=== PATIENT | male | born 1975 | race Caucasian/White ===

== ENCOUNTER 2022-12-25 06:47 | Outpatient (OUT) | payer OTHER, SELFPAY ==
[2022-12-25 07:05] LABS: Basophils Absolute Auto 0.1 10^3/uL (0.0-0.1); Basophils Percent Auto 0.8 % (0.2-2.0); Eosinophils Absolute Auto 0.3 10^3/uL (0.0-0.7); Eosinophils Percent Auto 3.4 % (0.9-7.0); Hematocrit 39.4 % (42.0-54.0); Hemoglobin 13.4 g/dL (14.0-18.0); Immature Granulocytes Abs Auto 0.02 10^3/uL (0.00-0.03); Immature Granulocytes Pct Auto 0.3 % (0.0-0.5); Lymphocytes Absolute Auto 2.5 10^3/uL (1.2-3.8); Lymphocytes Percent Auto 33.4 % (20.5-60.0); Mean Corpuscular Hemoglobin 32.7 pg (25.9-34.0); Mean Corpuscular Volume 96.1 fL (80.0-94.0); Mean Platelet Volume 8.8 fL (9.5-13.5); Monocytes Absolute Auto 0.5 10^3/uL (0.3-0.8); Monocytes Percent Auto 6.8 % (1.7-12.0); Neutrophils Absolute Auto 4.1 10^3/uL (1.4-6.5); Neutrophils Percent Auto 55.3 % (43.0-75.0); Platelet Count 260 10^3/uL (150-450); Red Cell Distribution Width 11.8 % (11.0-15.0); White Blood Count 7.4 10^3/uL (4.0-11.0)
[2022-12-25 08:13] LABS: Alanine Aminotransferase 43 U/L (16-63); Albumin Globulin Ratio 1.2; Albumin Level 4.1 g/dL (3.4-5.0); Alkaline Phosphatase 52 U/L (46-116); Aspartate Amino Transferase 23 U/L (15-37); Bilirubin Total 0.8 mg/dL (0.2-1.0); Carbon Dioxide 29.4 mmol/L (21.0-32.0); Chloride 101 mmol/L (98-107); Chol HDL Ratio 3.3; Cholesterol 169 mg/dL (<=200); Estimated GFR (African America >60 (>=60); Estimated GFR (Non-African Ame >60 (>=60); Globulin 3.4 g/dL; Glucose 93 mg/dL (74-106); HDL Cholesterol 51 mg/dL (40-60); LDL Cholesterol Calculated 92.6 mg/dL; Potassium 4.4 mmol/L (3.5-5.1); Sodium 139 mmol/L (136-145); Total Protein 7.5 g/dL (6.4-8.2); Triglycerides 127 mg/dL (<=150); VLDL CHOLESTEROL 25.4 mg/dL
== END 2022-12-25 06:48 | disposition home or self-care (01) ==
LOC: LAB 06:47
PROVIDERS: PCP Family Medicine; Visit Provider Family Medicine
DX: Z00.00 Encounter for general adult medical examination without abnormal findings (principal)
CPT/HCPCS: 36415; 80053; 80061; 85025

== ENCOUNTER 2024-08-31 15:05 | Outpatient (OUT) | payer OTHER, SELFPAY ==
--- OUTSIDE RECORDS SUMMARY | 2024-08-28 11:30 | XMS_ITS ---
Author Organization The [facility] in [place] Address [address] [place] [address] Care Team Providers Care Location And Measurement Technician Name Role Phone [place] Primary Care Provider [phone] Allergies Allergen (clinical drug ingredient) Drug/Non Drug Allergy documented on EMR Reaction Allergy Type Onset Date Status Cats Unknown Allergy Active Substance with sulfonamide structure and antibacterial mechanism of action (substance) Sulfa Antibiotics rash Drug Allergy Active REASON FOR VISIT new patient, previous pcp dr alejandre Medications Medication SIG (Take, Route, Frequency, Duration) Notes Start Date End Date Status buPROPion HCl ER (XL) 150 MG 1 tablet in the morning Orally Once a day Active Garlic Active Multivitamin Active Viagra 100 MG 1 tablet as needed O rally Once a day for 90 days 08/28/2024 Active Lisinopril 20 MG 1 tablet Orally Once a day Active Social History Tobacco Use: Social History Observation Description Date Details (start date - stop date) Former Smoker 11/07/1992 - 03/10/2004 Tobacco Control (Standard) Question Answer Notes Tobacco use: Former smoker When did you start smoking? 11/07/1992 When did you stop smoking? 03/10/2004 How long has it been since y ou last smoked? Greater than 10 years Additional Findings: Tobacco user Heavy cigarett e smoker (20-39 cigs/day) AUDIT-C (Standard) Question Answer Notes Did you have a drink contain ing alcohol in the past year? Yes How often did you have a dri nk containing alcohol in the past year? Monthly or less (1 point) How many drinks did you have on a typical day when you were drinking in the past year? 1 or 2 drinks (0 point) How often did you have six o r more drinks on one occasion in the past year? 2 to 3 times per week (3 points) Points 4 Interpretation Positive Problems Problem Type SNOMED Code ICD Code Onset Dates Problem Status W/U Status Risk Notes Problem Sleep apnea (67611500) Sleep apnea (G47.30) Active confirmed Problem Depression (322177770) Depression (F32.9) Active confirmed Problem Anxiety (98830852) Anxiety (F41.9) Active confirmed Problem Hypertension (00004796) Hypertension (I10) Active confirmed Problem Impotence (N52.9) Active confirmed Vital Signs Blood pressure systolic 124 mm Hg 08/29/19 25 Blood pressure diastolic 80 mm Hg 025 Height 69 in 08/28/2024 Weight 247.2 lbs 08/28/2024 BMI 36.5 kg/m2 08/28/2024 Encounters Encounter Location Date Provider Diagnosis [facility] [address] [place] [address] 08/28/2024 [place] Sleep apnea G47.30 ; Depression F32.9 ; Anxiety F41.9 ; Hypertension I10 ; Impotence N52.9 and Well adult Z00.00 Assessments Encounter Date Diagnosis (ICD Code) Assessment Notes Treatment Notes Treatment Clinical Notes Section Notes 08/28/2024 Sleep apnea (ICD-10 - G47.30) weating mask an dhelps but not as much as previou - may need repat titration 08/28/2024 Depression (ICD-10 - F32.9) meds helping 08/28/2024 Anxiety (ICD-10 - F41.9) pn meds stable 08/28/2024 Hypertension (ICD-10 - I10) stqble on med - and diet 08/28/2024 Impotence (ICD-10 - N52.9) 08/28/2024 Well adult (ICD-10 - Z00.00) Plan Of Treatment Medication Medication Name Sig Start Date Stop Date Notes buPROPion HCl ER (XL) 150 MG 1 tablet in the morning Orally Once a day Viagra 100 MG 1 tablet as needed O rally Once a day for 90 days 08/28/2024 Lisinopril 20 MG 1 tablet Orally Once a day Treatment Notes Assessment Notes Sleep apnea weating mask an dhel ps but not as much as previou - may need repat titration Depression meds helping Anxiety pn meds stable Hypertension stqble on med - and diet Pending Test Test Name Order Date HEMOGLOBIN A1C (GLYCO) 08/28/2024 LIPID PANEL (CHOL/TRIG/HDL/LDL) 08/29/19 25 STOOL OCCULT BLOOD 08/28/2024 TESTOSTERONE, TOTAL 08/28/2024 THYROID PANEL (T4/TSH/FREE T3) 5 PSA, SCREENING 08/28/2024 CMP (COMP MET SHEN) w/eGFR CKD-EPI 2024 CBC WITH DIFF 08/28/2024 Progress Notes * Navya HARRISOB:1975 ([age] yo M)Acc No.[id number]:08/28/2024 New Patient Patient: Stuart RAMAN Provider: Miguel [place] ([facility])MD :1975 A ge:49 Y S ex:Male Date:08/28/2024 Address:[facility] [address], [place], [id number] Check In:03:20 PM ESTCheck O ut:04:16 PM EST Subjective: * Chief Complaints: * N ew patient, previous pcp dr alejandre * HPI: G eneral: anxiet and depression - Hypertesnion - stable on meds due for labs. D epression Screening: PHQ-9 L ittle interest or pleasure in doing things?Several days F eeling down, depressed, or hopeless S everal days T rouble falling or staying asleep, or sleeping too much M ore than half the days F eeling tired or having little energy S everal days P oor appetite or overeating M ore than half the days F eeling bad about yourself or that you are a failure, or have let yourself or your family down N ot at all T rouble concentrating on things, such as reading the newspaper or watching television S everal days M oving or speaking so slowly that other people could have noticed; or the opposite, being so fidgety or restless that you have been moving around a lot more than usual N ot at all T houghts that you would be better off or of hurting yourself in some way N ot at all T otal Score 8 I nterpretation M ild Depression * ROS: E ENT: hearing changes d enies. v isual changes d enies.?non-healing mouth sores d enies. s wollen glands or neck lumps d enies. h oarseness d enies. s ore throat d enies. d ifficulty swallowing d enies. n ose bleeds d enies. n eran congestion d enies. e ar ache d enies. e ar discharge?denies. r inging in ears d enies. l ight sensitivity d enies. e ye pain d enies. b lurring d enies. e ye irritation d enies. d ouble vision d enies.?vision loss d enies. G eneral/Constitutional: Sweats: D enies. F atigue d enies. S leep problems d enies. A norexia d enies. M alaise d enies. W eight loss d enies.?Fatigue or Weakness d enies. F ever or Chills d enies. C ardiovascular: Shortness of Breath w/lying flat d enies. L ightheadedness/dizziness d enies. C hest tightness/ heavy pressure d enies. S welling of legs, ankles, or feet d enies. W aking up with shortness of breath d enies. C hest pain denies. P alpitations d enies. W eight gain d enies. R espiratory: Chronic or frequent cough d enies. C oughing up blood?denies. D ifficulty breathing d enies. P roductive cough d enies. S noring?denies. S hortness of breath that awakens from sleep (PND) d enies. C hest pain d enies. S putum production d enies. W heezing d enies. M usculoskeletal: Joint pain d enies. J oint Fluid d enies. B ack pain d enies. K nee pain d enies. N mark pain d enies. J oint Stiffness d enies. M uscle cramps d enies. W eakness of muscles d enies. A rthritis d enies. M uscle aches d enies. P ain in shoulder(s) d enies. S wollen joints d enies. * Active Problem List G47.30 Sleep apnea Modified On:08/28/2024 Status:confirmed F32.9 Depression Modified On:08/28/2024 Status:confirmed F41.9 Anxiety Modified On:08/28/2024 Status:confirmed I10 Hypertension Modified On:08/28/2024 Status:confirmed N52.9 Impotence Modified On:08/28/2024 Status:confirmed * Medical History: * Surgical History: c olonoscopy 01/31/2024 * Hospitalization/Major Diagno stic Procedure: N o Hospitalization History. * Family History: F ather: alive, diagnosed with Diabetes mellitus without mention of complication, type II or unspecified type, not stated as uncontrolled. M other: alive, diagnosed with Diabetes mellitus without mention of complication, type II or unspecified type, not stated as uncontrolled. P aternal Grandfather: diagnosed with Unspecified heart disease. P aternal Grandmother: diagnosed with Unspecified heart disease. M aternal Grandfather: diagnosed with Unspecified heart disease. M aternal Grandmother: diagnosed with Other malignant neoplasm of unspecified site. 1 sister(s) . 1 son(s) . . * Social History: T obacco Use: T obacco Control (Standard) T obacco use: F ormer smoker W hen did you start smoking? 0 11/07/1992 W hen did you stop smoking? 0 03/10/2004 H ow long has it been since you last smoked??Greater than 10 years A dditional Findings: Tobacco user H eavy cigarette smoker (20-39 cigs/day) D rug/Alcohol: A RODO-C (Standard) D id you have a drink containing alcohol in the past year? Y es H ow often did you have a drink containing alcohol in the past year? M onthly or less (1 point) H ow many drinks did you have on a typical day when you were drinking in the past year? 1 or 2 drinks (0 point) H ow often did you have six or more drinks on one occasion in the past year? 2 to 3 times per week (3 points) P oints 4 I nterpretation P ositive * Medications: T akingbuPROPion HCl ER (XL) 150 MG Tablet Extended Release 24 Hour 1 tablet in the morning Orally Once a day Garlic Lisinopril 20 MG Tablet 1 tablet Orally Once a day Multivitamin Medication List reviewed and reconciled with the patientTaking buPROPion HCl ER (XL) 150 MG Tablet Extended Release 24 Hour 1 tablet in the morning Orally Once a day Taking Garlic Taking Lisinopril 20 MG Tablet 1 tablet Orally Once a day Taking Multivitamin Medication List reviewed and reconciled with the patient * Allergies: S ulfa Antibiotics: rashCats Objective: * Vitals: W t:247.2lbs, Ht: 69 in, BP:124/80mm Hg, BMI:36.5Index, Ht-cm: 175.26 cm, Wt-k.13 kg. * Examination: P hysical Exam: GENERAL: w ell developed, well nourished, in no acute distress. HEAD: n ormocephalic/atraumatic. EYES: p upils equal, round and reactive to light, conjunctivae and sclerae normal. EARS: n o deformity or lesion of external ear, canals and TM appear normal bilaterally, TM's intact, not inflamed with normal light reflex, hearing grossly normal to conversational speech. NOSE: n o deformity, discharge, inflammation, or lesions.? MOUTH: m ucous membranes moist, normal oropharynx and posterior pharynx without lesions or exudates, tongue normal, dentition normal. NECK: n mark supple, no masses or palpable cervical nodes, trachea midline, thyroid without nodules, masses, tenderness, or enlargement. CHEST: n o chest wall deformity, no chest wall tenderness.? LUNGS: n ormal respiratory effort and clear to auscultation, no wheezes, rales, or rhonchi, good air exchange. CARDIO: r egular rate and rhythm, normal S1 and S2, nor murmur, rub, or gallop. PULSES: n ormal capillary refill. ABDOMEN: s oft, non-distended, non-tender, no masses. MUSCULOSKELETAL: n o deformity or scoliosis noted, normal range of motion, joints normal, no erythema, edema, effusion, or ecchymosis. EXTREMITY: n o clubbing, cyanosis, edema, or deformity with normal ROM in both upper and lower bilateral extremities. NEUROLOGIC: g rossly normal. SKIN: n o rashes, ulcerations, or suspicious lesions. LYMPH NODES: n o cervical adenopathy, nodes normal. MENTAL STATUS: a lert and oriented x3, normal mood and affect. Assessment: * Assessment: 1. S leep apnea - G47.30 (Primary) 2 . D epression - F32.9 3 . A nxiety - F41.9 4 . H ypertension - I10 5 . I mpotence - N52.9 6 . W ell adult - Z00.00 Plan: * Treatment: 2. D epression Notes: meds helping 3. A nxiety Notes: pn meds stable 4. H ypertension Notes: stqble on med - and diet 5. I mpotence Start Viagra Tablet, 100 MG, 1 tablet as needed, Orally, Once a day, 90 days, 30 Tablet, Refills 3.? 6. W [facility] adult Refill buPROPion HCl ER (XL) Tablet Extended Release 24 Hour, 150 MG, 1 tablet in the morning, Orally, Once a day, 90, Refills 3; R efill Lisinopril Tablet, 20 MG, 1 tablet, Orally, Once a day, 90, Refills 3. L AB: HEMOGLOBIN A1C (GLYCO) L AB: LIPID PANEL (CHOL/TRIG/HDL/LDL) L AB: STOOL OCCULT BLOOD L AB: TESTOSTERONE, TOTAL L AB: THYROID PANEL (T4/TSH/FREE T3) L AB: PSA, SCREENING L AB: CMP (COMP MET SHEN) w/eGFR CKD-EPI L AB: CBC WITH DIFF * Procedure Codes: * Preventive Medicine: Screenings/Counseling: B WA ACTION PLAN Above Normal BMI Follow-up D ietary management education, guidance, and counseling * * Sign off status: Completed Visit Status: C HK (Check Out) true * Provider: Miguel [place] ([facility])MD Date: 0 08/28/2024 Generated for Printi ng/Faxing/eTransmitting on: 08/31/2024 03:08 PM EDT History and Physical Notes * HPI (History of Present Illness) Category Sub-Category Detail Notes Category Not es Depression Screening PHQ-9 Little inte rest or pleasure in doing things: Several days Feeling down, depressed, or hopeless: Se veral days Trouble falling or staying a sleep, or sleeping too much: More than half the days Feeling tired or having little energy: S everal days Poor appetite or overeating: More than h litzy the days Feeling bad about yourself o r that you are a failure, or have let yourself or your family down: Not at all Trouble concentrating on thi ngs, such as reading the newspaper or watching television: Several days Moving or speaking so slowly that other people could have noticed; or the opposite, being so fidgety or restless that you have been moving around a lot more than usual: Not at all Thoughts that you would be b carlos off or of hurting yourself in some way: Not at all Total Score: 8 Interpretation: Mild Depression General anxiet and depression - Hypertesnion - stable on meds due for labs Examination Category Sub-Category Detail Notes Category Not es Physical Exam GENERAL: well developed, well nourished, in no acute distress HEAD: normocephalic/atraum atic EYES: pupils equal, round and reactive to light, conjunctivae and sclerae normal EARS: no deformity or lesi on of external ear, canals and TM appear normal bilaterally, TM's intact, not inflamed with normal light reflex, hearing grossly normal to conversational speech NOSE: no deformity, discha rge, inflammation, or lesions MOUTH: mucous membranes jani st, normal oropharynx and posterior pharynx without lesions or exudates, tongue normal, dentition normal NECK: neck supple, no mass es or palpable cervical nodes, trachea midline, thyroid without nodules, masses, tenderness, or enlargement CHEST: no chest wall deform ity, no chest wall tenderness LUNGS: normal respiratory e ffort and clear to auscultation, no wheezes, rales, or rhonchi, good air exchange CARDIO: regular rate and rhy thm, normal S1 and S2, nor murmur, rub, or gallop PULSES: normal capillary ref ill ABDOMEN: soft, non-distended, non-tender, no masses RECTAL: MUSCULOSKELETAL: no deformity or scol iosis noted, normal range of motion, joints normal, no erythema, edema, effusion, or ecchymosis EXTREMITY: no clubbing, cyanosi s, edema, or deformity with normal ROM in both upper and lower bilateral extremities NEUROLOGIC: grossly normal SKIN: no rashes, ulceratio ns, or suspicious lesions LYMPH NODES: no cervical adenopat hy, nodes normal MENTAL STATUS: alert and oriented x 3, normal mood and affect
--- OUTSIDE RECORDS SUMMARY | 2024-08-31 15:08 | XMS_ITS | Patient Health Record ---
Author Organization [facility] in [place] Address [address] [place] [address] Care Team Providers Care Corporate Real Estate Manager Name Role Phone [place] Primary Care Provider [phone] Allergies Allergen (clinical drug ingredient) Drug/Non Drug Allergy documented on EMR Reaction Allergy Type Onset Date Status Cats Unknown Allergy Active Substance with sulfonamide structure and antibacterial mechanism of action (substance) Sulfa Antibiotics rash Drug Allergy Active Reason For Referral No Information Medications Medication SIG (Take, Route, Frequency, Duration) [...] Problem Status W/U Status Risk Notes Problem Hypertension (29782095) Hypertension (I10) Active confirmed Problem Anxiety (83022678) Anxiety (F41.9) Active confirmed Problem Depression (476194964) Depression (F32.9) Active confirmed Problem Sleep apnea (99356519) Sleep apnea (G47.30) Active confirmed Problem Impotence (N52.9) Active confirmed Vital Signs Blood pressure diastolic 80 mm Hg 08/28/2024 Height 69 in 08/28/2024 Blood pressure systolic 124 mm Hg 08/28/2024 Weight 247.2 lbs 08/28/2024 BMI 36.5 kg/m2 08/28/2024 Encounters Encounter Location Date Provider Diagnosis [facility] [address] [place] [address] 08/28/2024 [place] Sleep apnea G47.30 ; Depression F32.9 ; [...] adult (ICD-10 - Z00.00) Plan Of Treatment Pending Test Test Name Order Date HEMOGLOBIN A1C (GLYCO) 08/28/2024 LIPID PANEL (CHOL/TRIG/HDL/LDL) 08/29/19 25 STOOL OCCULT BLOOD 08/28/2024 TESTOSTERONE, TOTAL 08/28/2024 THYROID PANEL (T4/TSH/FREE T3) 5 PSA, SCREENING 08/28/2024 CMP (COMP MET SHEN) w/eGFR CKD-EPI 2024 CBC WITH DIFF 08/28/2024 Insurance Providers Payer Name Payer Address Payer Phone Subscriber Number Group Number Insured Name Patient Relationship to Insured Coverage Start Date Coverage End Date [employer] [address] [address] [place] [phone] [id number] Stuart Bolivar Self - patient is the insured Medical (General) History Surgical History Surgery Date(Month/Year) colonoscopy 01/31/2024
[2024-08-31 16:03] LABS: Hematocrit 37.4 % (42.0-54.0); Hemoglobin 12.5 g/dL (14.0-18.0); Immature Granulocytes Abs Auto 0.03 10^3/uL (0.00-0.03); Immature Granulocytes Pct Auto 0.5 % (0.0-0.5); Lymphocytes Absolute Auto 2.1 10^3/uL (1.2-3.8); Mean Corpuscular HGB Conc 33.4 g/dL (29.9-35.2); Mean Corpuscular Hemoglobin 31.3 pg (25.9-34.0); Mean Corpuscular Volume 93.7 fL (80.0-94.0); Platelet Count 272 10^3/uL (150-450); Red Blood Count 3.99 10^6/uL (4.70-6.10); White Blood Count 6.5 10^3/uL (4.0-11.0)
[2024-08-31 16:11] LABS: Alanine Aminotransferase 69 U/L (16-63); Albumin Globulin Ratio 1.1; Albumin Level 3.9 g/dL (3.4-5.0); Alkaline Phosphatase 58 U/L (46-116); Anion Gap 14.4; Aspartate Amino Transferase 22 U/L (15-37); Blood Urea Nitrogen 21.0 mg/dL (7.0-18.0); Calcium 9.1 mg/dL (8.5-10.1); Carbon Dioxide 26.6 mmol/L (21.0-32.0); Chloride 102 mmol/L (98-107); Cholesterol 201 mg/dL (<=200); Estimated GFR (African America >60 (>=60 mL/min/1.73m^2); Estimated GFR (Non-African Ame >60 (>=60 mL/min/1.73m^2); Free T3 2.97 pg/mL (2.18-3.98); Globulin 3.5 g/dL; Glucose 84 mg/dL (74-106); HDL Cholesterol 61 mg/dL (40-60); Potassium 4.0 mmol/L (3.5-5.1); Sodium 139 mmol/L (136-145); Thyroid Stimulating Hormone 2.902 uIU/mL (0.358-3.740); Total Protein 7.4 g/dL (6.4-8.2); Triglycerides 99 mg/dL (<=150); VLDL CHOLESTEROL 19.8 mg/dL
--- OUTSIDE RECORDS SUMMARY | 2024-08-31 17:27 | XMS_ITS | CCD ---
Author Organization [facility] Care Team Providers Care Machinist Mechanic Name Role Phone DR DURGA MARTINEZ Admitting Unavailable JADE, DR DURGA Olivier Attending Unavailable JADE, DR DURGA Olivier Consulting Unavailable JADE, DR DURGA Olivier Admitting Unavailable JADE, DR DURGA Olivier Attending Unavailable JADE, DR DURGA Olivier Consulting Unavailable Anselmo Leiva Attending Unavailable Anselmo Leiva Attending Unavailable Anselmo Leiva Attending Unavailable Anselmo Leiva Admitting Unavailable Anselmo Leiva Attending Unavailable Anselmo Leiva. Primary Care Physician Anselmo Leiva Attending Unavailable Anselmo Leiva Admitting Unavailable Gregorio Ignacio Attending Unavaila ble Gregorio Ignacio Admitting Unavaila ble Gregorio Ignacio Referring Unavaila ble SarminGregorio green Attending Unavaila ble Allergies Allergy Classification Reported Allergen(s) Allergy Type Date of Onset Reaction(s) Facility (5 sources) Sulfonamides (Antibiotic); Translations: [sulfa drugs] Propensity to adverse reactions (disorder) [facility] Repository Medications Current Medications Medication Drug Class(es) Dates Sig (Normalized) Sig (Original) 24 hr buPROPion hydrochloride 150 mg extended release oral tablet (3 sources) Aminoketone Start: 11-30-2023 take 1 tablet by mouth every twenty-four hours buPROPion 150 mg/24 hours XL Tab 150 mg = 1 tab(s), Oral, q24hr, # 90 tab(s), Refills(s) 3, [facility]acy: [facility], 174.5, cm, 10/14/23 8:34:00 EDT, Height/Length Dosing, 121.6, kg, 10/14/23 8:34:00 EDT, Weight Dosing Start Date: 11/30/23 Status: Ordered Start: 10-14-2023 take 1 tablet by alondra th every twenty-four hours buPROPion 150 mg/24 hours XL Tab 150 mg = 1 tab(s), Oral, q24hr, # 90 tab(s), Refills(s) 1, [facility]acy: [facility], 174.5, cm, 10/14/23 8:34:00 EDT, Height/Length Dosing, 121.6, kg, 10/14/23 8:34:00 EDT, Weight Dosing Start Date: 10/14/23 Status: Ordered lisinopril 20 mg oral tablet (3 sources) Angiotensin Converting Enzyme Inhibitor Start: 11-30-2023 take 1 tablet by mouth once daily lisinopril 20 mg Tab 20 mg = 1 tab(s), Oral, Daily, # 90 tab(s), Refills(s) 3, Pharmacy: [facility], 174.5, cm, 10/14/23 8:34:00 EDT, Height/Length Dosing, 121.6, kg, 10/14/23 8:34:00 EDT, Weight Dosing Start Date: 11/30/23 Status: Ordered Start: 10-14-2023 take 1 tablet by alondra th once daily lisinopril 20 mg Tab 20 mg = 1 tab(s), Oral, Daily, # 90 tab(s), Refills(s) 1, Pharmacy: [facility], 174.5, cm, 10/14/23 8:34:00 EDT, Height/Length Dosing, 121.6, kg, 10/14/23 8:34:00 EDT, Weight Dosing Start Date: 10/14/23 Status: Ordered tirzepatide (2 sources) Start: 12-13-2023 inject 20 [IU] by subcutaneous injection every week tirzepatide SubCutaneous, qWeek, 20 units, Refills(s) 0, Blood glucose Start Date: 12/13/23 Status: Ordered Start: 12-13-2023 inject 20 [IU] by nascimento bcutaneous injection every week tirzepatide SubCutaneous, qWeek, 20 units, Refills(s) 0 Start Date: 12/13/23 Status: Ordered Problems Active Problems Problem Classification Problem Date Documented Da te Episodic/Chronic Anxiety disorders (3 sources) Anxiety 12-02-2022 Chronic Disorders of lipid metabolism (2 sources) Hyperlipidemia 10-15-2023 Chronic Essential hypertension (4 sources) Hypertensive disorder; Translations: [Essential hypertension] Onset: 12-13-2023 12-02-2022 Chronic Mood disorders (3 sources) Depressive disorder 12-02-2022 Chronic Osteoarthritis (3 sources) Arthritis 12-02-2022 Chronic Other gastrointestinal disorders (2 sources) Abnormal feces; Translations: [Other fecal abnormalities] Onset: 12-13-2023 Episodic Other screening for suspected conditions (not mental disorders or infectious disease) (2 sources) Stool DNA-based colorectal cancer screening positive 11-05-2023 Episodic Residual codes; unclassified (4 sources) Sleep apnea; Translations: [Sleep apnea, unspecified] Onset: 12-13-2023 12-02-2022 Chronic Unclassified (3 sources) CONTACT W/AND (SUSP) EXPOS COVID-19; Translations: [CONTACT W/AND (SUSP) EXPOS COVID-19] Onset: 02-26-2021 Unclassified (3 sources) Patient encounter status 12-17-2022 Past or Other Problems Problem Classification Problem Date Documented Da te Episodic/Chronic Unclassified (1 source) CONTACT W/AND (SUSP) EXPOS COVID-19; Translations: [CONTACT W/AND (SUSP) EXPOS COVID-19] Onset: 02-24-2021 Results Test Name Value Interpretation Reference Range Facility Patient Letter FTMCon [address] [facility] Patient Letter [facility] February 16, 2024 ROCK HARRIS [address] [place] [address] [place] [id number] : 1975 Below is a summary of the results of your recent colonoscopy. Your results have been sent to your primary care provider along with recommendations on when the procedure should be repeated. COLONOSCOPY WITH POLYP REMOVAL OR BIOPSY Type of polyp hyperplastic polyps - benign - not considered precancerous Based on your results we are recommending you repeat the procedure in 5 years You will be placed in our reminder system and will receive a reminder letter prior to your next due date. [facility] [phone] Normal [facility] Reminderson 02-16-2024 Reminders Reminders - From: Macarena Kenyon I To: [facility] - Reminders/Recalls; Sent: 02/16/2024 13:47:51 EST Show up: 12/09/2028 13:47:00 EDT Subject: Colonoscopy recall Due Date/Time: 01/30/2029 13:47:00 EST Reminder/Recall 5 year colon recall (previous positive cologuard) Dr. Ignacio 01/31/24 Normal [facility] Surgical Pathology Reporton 02-03-2024 Surgical Pathology Report [address] [place] [address]- Surgical Pathology Report Collected Date/Time: 01/31/2024 12:26 EST Pathologist: Luis RANGEL PhD, Roxann Ramírez Received Date/Time: 01/31/2024 13:45 EST Mateus RANGEL, Gregorio Ignacio MD, Gregorio Reid 07 Surgical Pathology Report - 02/03/2024 10:52 EST - Auth (Verified) Final Diagnosis POLYP, TRANSVERSE COLON, POLYPECTOMY: - COLONIC MUCOSA WITH HYPERPLASTIC CHANGES. (Electronic Signature) Roxann Smith MD PhD 02/03/2024 10:52 Clinical Information Positive cologuard Pre-Op Diagnosis: Positive cologuard Procedure: Colonoscopy Post-Op Diagnosis: 1. Small internal hemorrhoids 2. 3 mm sessile polyp in the transverse colon, resected with cold snare completely and retrieved 3. Otherwise normal colonic mucosa, careful examination of each segment of the colon was done multiple times 4. Normal examined terminal ileum Specimen(s) Received Transverse colon polyp Gross Description Received in formalin labeled with patient name, number, and transverse colon polyp is a single elongated green/pink fragment tissue measuring 1.4 x 0.1 x 0.1 cm. The specimen is entirely submitted in one cassette. (DC) DC:[facility] Microscopic Description Microscopic examination performed unless gross only specified. Normal [facility] Comment on above: Performed By: #### [id number] #### [facility] Laboratory [address] [place] [id number] Main OR Intraoperative Recor don 02-01-2024 Main OR Intraoperative Record Main OR Intraoperative Record IntraOp Document Type FT Summary Primary Physician: Mateus RANGEL, Gregorio Reid Finalized Date/Time: 02/01/24 08:55:03 Pt. Name: ROCK HARRIS.O.B./Sex: 1975 Male Med Rec #: [id number] Physician: Mateus RANGEL, Gregorio Reid Financial #: [id number] Pt. Type: O Room/Bed: / Admit/Disch: 01/31/24 11:08:11 - 01/31/24 23:59:59 Institution: Case Times FT Entry 1 Patient Times In Room 01/31/24 12:11:00 Out Room 01/31/24 12:41:00 Procedure Times Start 01/31/24 12:15:00 Stop 01/31/24 12:38:00 Anesthesia Times Start 01/31/24 12:11:00 Stop 01/31/24 12:41:00 Time at [facility] 01/31/24 12:19:00 Last Modified By: Nicole CROWLEY, Nelli F 01/31/24 12:41:40 General Comments: 02/01/24 Chart opened for charge review per Gold Bernabe RN. [place] Case Attendance FT Entry 1 Entry 2 Entry 3 Case Attendee Atilio Haque RN, Margarita Barrett Role Performed Anesthesiologist Copy Preparer - Primary Scrub - Primary Financial Cost Analyst Time In 01/31/24 12:11:00 01/31/24 12:11:00 01/31/24 12:11:00 Time Out 01/31/24 12:41:00 01/31/24 12:41:00 01/31/24 12:41:00 Procedure COLONOSCOPY(.) COLONOSCOPY(.) COLONOSCOPY(.) Comments Dr. Spence supervising case Last Modified By: Nicole RN, Nelli Rivera RN, Nelli Rivera RN, Nelli F 01/31/24 12:41:41 F 01/31/24 12:41:41 F 01/31/24 12:41:41 Entry 4 Entry 5 Case Attendee Madhav Daniels MD, Gregorio Reid Role Performed Staff - Other Surgeon - Primary Time In 01/31/24 12:11:00 01/31/24 12:11:00 Time Out 01/31/24 12:41:00 01/31/24 12:41:00 Procedure COLONOSCOPY(.) COLONOSCOPY(.) Comments help in room Last Modified By: Nelli Rivera RN, RN, Madaline F 01/31/24 12:41:41 F 01/31/24 12:41:41 Perioperative Protocols FT Pre-Care Text: Implements protective measures prior to operative or invasive procedure, confirms identity before the operative or invasive procedure, verifies operative procedure, surgical site, and laterality Entry 1 Procedure(s) COLONOSCOPY(.) Patient Identity Birthday, ID Band Verified (select at Check, Patient least 2): Participation Consents / H and P Anesthesia Consent, Operative Site N/A Verified H&P, Surgery/Procedure Marking Verified Consent Surgical Site No Laterality Verified n/a Verified Procedure Verified Yes Correct Patient Yes Position Verified Availability Equipment, Medication Prep Dry n/a Verified (If Applicable) PreOp Antibiotic No Time Out Atilio Haque, Given Participants Nicole CROWLEY, Charli Shirley Kirstyn K, Sparks, Micala E, Mateus RANGEL, Gregorio Reid Time Out Complete 01/31/24 12:12:00 Outcomes Met? Yes Last Modified By: Nelli Rivera RN 01/31/24 12:14:56 Post-Care Text: The patient is free from signs and symptoms of injury caused by extraneous objects Allergy Information FT Pre-Care Text: Verifies allergies Entry 1 Allergies Reviewed? Yes Allergies Reviewed Self/Patient With Outcomes Met? Yes Last Modified By: Nelli Rivera RN 01/31/24 12:15:01 Post-Care Text: The patient received appropriate medication(s) safely administered during the perioperative period Surgical Procedures FT Entry 1 Procedure Description Procedure COLONOSCOPY Modifiers . Surgeon Description Colonoscopy with transverse colon polypectomy. Primary Procedure Yes Primary Surgeon Mateus RANGEL, Gregorio Reid Start 01/31/24 12:15:00 Stop 01/31/24 12:38:00 Anesthesia Type General Surgical Service Gastroenterology Wound Class 2 - Clean-Contaminated Last Modified By: Nelli Rivera RN 01/31/24 12:39:02 General Case Data FT Pre-Care Text: Classifies surgical wound, implements aseptic technique, initiates traffic control Entry 1 Case Information OR ENDO 1 FT Case Level Level 2 Wound Class 2 - Clean-Contaminated Specialty Gastroenterology ASA Class 3 Preop Diagnosis Positive cologuard Postop Same As Preop No Postop Diagnosis Transverse colon polyp, Outcomes Met? Yes internal hemorrhoids Last Modified By: Nelli Rivera RN 01/31/24 12:39:12 Post-Care Text: The patient is free from signs and symptoms of infection Skin Assessment (Pre Procedure) FT Pre-Care Text: Implements protective measures to prevent skin/ tissue injury due to thermal or mechanical sources Evaluates for signs and symptoms of physical injury to skin and tissue Entry 1 Skin Integrity Intact, [place], Warm, & Skin Abnormality No Dry Outcomes Met? Yes Last Modified By: Nelli Rivera RN 01/31/24 12:15:27 Post-Care Text: The patient is free from signs and symptoms of injury caused by extraneous objects Patient Positioning FT Pre-Care Text: Identifies physical alterations that require additional precautions for procedure-specific positioning, verifies presence of prosthetics or corrective devices, positions the patient, evaluates the patient (more content not included)... Normal [facility] Discharge Instructionson Discharge Instructions Discharge Instructions ROCK HARRIS :1975 Visit Date:01/31/2024 Inpatient Discharge Instructions Your Care Team Admitting Physician - Gregorio Ignacio MD Referring Physician - Gregorio Ignacio MD Reason for Your Visit POSITIVE COLOGUARD Your Diagnosis Positive colorectal cancer screening using Cologuard test Tests Performed Pathology Tissue Exam -- Results Pending -- Please visit your patient portal for your results or contact your primary care physician. This Is Your Medications List buPROPion (buPROPion 150 mg/24 hours XL Tab) lisinopril (lisinopril 20 mg Tab) tirzepatide Procedure History Colonoscopy (01/31/2024), Dental, Laser. What to do next Instructions From Your Doctor Event Name Event Result Discharge Activity Resume normal activities in 24 hours Discharge Restrictions No driving for 24 hrs Discharge Diet(s) Regular Call Your Doctor For Persistent or heavy bleeding Discharge Instructions Discharge Instructions New Follow Up Appointments after Discharge Follow Up with Mateus RANGEL, Gregorio Reid, GAS, MED When: Comments: Call for any problems. Office will call to schedule follow up appointment Where: Medications What How Much When Instructions Next Dose Unchanged buPROPion (buPROPion 150 mg/ 24 hours XL Tab) 1 Tablets By Mouth Every 24 hours Unchanged lisinopril (lisinopril 20 mg Tab) 1 Tablets By Mouth Every day Unchanged tirzepatide Subcutaneous Every week 20 units Test Results No qualifying data available. Allergies sulfa drugs Problems Ongoing - Any problem that you are currently receiving treatment for. Anxiety Arthritis Depression HLD (hyperlipidemia) HTN (hypertension) Physical exam Positive colorectal cancer screening using Cologuard test Sleep apnea Education Materials Hemorrhoids Hemorrhoids are swollen veins that may form: ??? In the butt (rectum). These are called internal hemorrhoids. ??? Around the opening of the butt (anus). These are called external hemorrhoids. Most hemorrhoids do not cause very bad problems. They often get better with changes to your lifestyle and what you eat. What are the causes? Having trouble pooping (constipation) or watery poop (diarrhea). ??? Pushing too hard when you poop. ??? . ??? Being very overweight (obese). ??? Sitting for too long. ??? Riding a bike for a long time. ??? Heavy lifting or other things that take a lot of effort. ??? Anal sex. What are the signs or symptoms? Pain. ??? Itching or soreness in the butt. ??? Bleeding from the butt. ??? Leaking poop. ??? Swelling. ??? One or more lumps around the opening of your butt. How is this treated? In most cases, hemorrhoids can be treated at home. You may be told to: ??? Change what you eat. ??? Make changes to your lifestyle. If these treatments do not help, you may need to have a procedure done. Your doctor may need to: ??? Place rubber bands at the bottom of the hemorrhoids to make them fall off. ??? Put medicine into the hemorrhoids to shrink them. ??? Shine a type of light on the hemorrhoids to cause them to fall off. ??? Do surgery to get rid of the hemorrhoids. Follow these instructions at home: Medicines ??? Take [id number] and prescription medicines only as told by your doctor. ??? Use creams with medicine in them or medicines that you put in your butt as told by your doctor. Eating and drinking ??? Eat foods that have a lot of fiber in them. These include whole grains, beans, nuts, fruits, and vegetables. ??? Ask your doctor about taking products that have fiber added to them (fibersupplements). ??? Take in less fat. You can do this by: ? Eating low-fat dairy products. ? Eating less red meat. ? Staying away from processed foods. ??? Drink enough fluid to keep your pee (urine) pale yellow. Managing pain and swelling ??? Take a warm-water bath (sitz bath) for 20 minutes to ease pain. Do this 3???4 times a day. You may do this in a bathtub. You may also use a portable sitz bath that fits over the toilet. ??? If told, put ice on the painful area. It may help to use ice between your warm baths. ? Put ice in a plastic bag. ? Place a towel between your skin and the bag. ? Leave the ice on for 20 minutes, 2???3 times a day. ??? If your skin turns bright red, take off the ice right away to prevent skin damage. The risk of damage is higher if you cannot feel pain, heat, or cold. General instructions ??? Exercise. Ask your doctor how much and what kind of exercise is best for you. ??? Go to the bathroom when you need to poop. Do not wait. ??? Try not to push too hard when you poop. ??? Keep your butt dry and clean. Use wet toilet paper or moist towelettes after (more content not included)... Normal [facility] Comment on above: Result Comment: Elec tronically Signed By: Joellen Damico I\.shaniqua\Date and Time Signed: 01/31/24 12:50 EST Inpatient Patient Summaryon 01-31-2024 Inpatient Patient Summary Inpatient Patient Summary [place] [id number] [facility] Clinical Discharge Instructions PERSON INFORMATION Name: ROCK HARRIS PHYSICIANS Admitting Physician: Gregorio Ignacio MD Attending Physician: Gregorio Ignacio MD PCP: Anselmo Leiva MD Discharge Diagnosis: Positive colorectal cancer screening using Cologuard test Comment: PATIENT EDUCATION INFORMATION Instructions: Medication Leaflets: Follow up: MEDICATION LIST Medications to Continue with No Changes Other Medications buPROPion (buPROPion 150 mg/24 hours XL Tab) 1 Tablets By Mouth every 24 hours. Refills: 3. lisinopril (lisinopril 20 mg Tab) 1 Tablets By Mouth every day. Refills: 3. tirzepatide Subcutaneous every week. 20 units. Comment: [facility]on [facility] Main OR PACU II Recordon Main OR PACU II Record Main OR PACU II Record PACU Phase II Document Type FT Summary Primary Physician: Gregorio Ignacio MD Finalized Date/Time: 01/31/24 13:11:55 Pt. Name: ROCK HARRIS/Sex: 1975 Male Med Rec #: [id number] Physician: Gregorio Ignacio MD Financial #: [id number] Pt. Type: O Room/Bed: / Admit/Disch: 01/31/24 11:08:11 - Institution: Case Times PACU II FT Pre-Care Text: Identifies barriers to communication and implements measures to provide psychological support and determines knowledge level Develops individualized plan of care, and ensures continuity of care Maintains patient's dignity and privacy, and maintains patient confidentiality Identifies and reports philosophical, cultural, and spiritual beliefs and values Identifies individual values and wishes concerning care administers prescribed antibiotic therapy and immunizing agents as ordered, Evaluates postoperative tissue perfusion Implements thermoregulation measures, and monitors body temperature Evaluates postoperative respiratory status Evaluates postoperative cardiac status Evaluates postoperative neurological status Assesses pain control, collaborated in initiating patient-controlled analgesia and implements alternative methods of pain control Verifies allergies, administers prescribed medications and solutions, evaluates response to medications Entry 1 In PACU II 01/31/24 12:43:00 Discharge from PACU 01/31/24 13:10:00 II Outcomes Met? Yes Last Modified By: Joellen Damico I 01/31/24 13:11:50 Post-Care Text: The patient demonstrates knowledge of the expected response to the operative or invasive procedure The patient's care is consistent with the individualized perioperative plan of care The patient's right to privacy is maintained The patient's value system, lifestyle, ethnicity, and culture are considered, respected, and incorporated into the perioperative plan of care The patient participates in decisions affecting his or her perioperative plan of care. The patient is free from signs and symptoms of infection The patient has wound/tissue perfusion consistent with or improved from baseline levels established preoperatively The patient is at or returning to normothermia at the conclusion of the immediate postoperative period The patient's respiratory function is consistent with or improved from baseline levels established preoperatively The patient's cardiovascular status is consistent with or improved from baseline levels established preoperatively The patient's neurological status is consistent with or improved from baseline levels established preoperatively The patient demonstrates and/or reports adequate pain control throughout the perioperative period The patient received appropriate medication(s), safely administered during the perioperative period Finalized By: Joellen Damico I Document Signatures Signed By: Joellen Damico I 01/31/24 13:11 Normal [facility] Main OR Preoperative Recordo n 01-31-2024 Main OR Preoperative Record Main OR Preoperative Record Holding Area Document Type FT Summary Primary Physician: Gregorio Ignacio MD Finalized Date/Time: 01/31/24 11:19:15 Pt. Name: ROCK HARRIS/Sex: 1975 Male Med Rec #: [id number] Physician: Gregorio Ignacio MD Financial #: [id number] Pt. Type: O Room/Bed: / Admit/Disch: 01/31/24 11:08:11 - Institution: Case Times Holding FT Pre-Care Text: Verifies consent for planned procedure, identifies individual values and wishes concerning care, includes family members in perioperative teaching Secures patient's records' belongings, and valuables, maintains patient's dignity and privacy, and maintains patient confidentiality Entry 1 In Holding 01/31/24 11:15:00 Outcomes Met? Yes Last Modified By: Naty Hankins RN 01/31/24 11:18:13 Post-Care Text: The patient participates in decisions affecting his or her perioperative plan of care The patient's right to privacy is maintained Surgery Checklist FT Entry 1 Patient Birthday, ID Band Procedure History and Physical, Identification: Check, Patient Verification: Surgical Consent, With Participation Patient NPO after Midnight: No Date/Time: 01/31/24 07:30:00 Personal Items: Glasses Personal Items clothes Comment: Limitations: no Complaints of Pain: No Pain Comment: no Operative Site n/a Marking: Availability Equipment Verified: Does Patient Smoke Yes If Yes to Smoking. Marijuana Cigars or Cigarettes. How much per day? Patient states Yes Comment - Adult Girlfriend-Gissell postop adult Supervision supervision available Case Cancelled in No Holding Area see comments below for reason Last Modified By: Naty Hankins RN 01/31/24 11:19:14 Finalized By: Naty Hankins RN Document Signatures Signed By: Naty Hankins RN 01/31/24 11:19 Normal [facility] Outpatient Surgery Discharge Instructionon 01-31-2024 Outpatient Surgery Discharge Instruction Outpatient Surgery Discharge Instruction [place] [address] Patient Discharge Instructions PERSON INFORMATION Name: CODY HARRISON Date of : 1975 Current Date: 01/31/2024 12:13:04 PHYSICIANS Admitting Physician: Gregorio Ignacio MD Discharge Diagnosis: Positive colorectal cancer screening using Cologuard test ROCK HARRIS has been given the following list of follow-up instructions, prescriptions, and patient education materials: PATIENT FOLLOW-UP INFORMATION Diet: Regular Discharge Activity: Resume normal activities in 24 hours Discharge Restrictions: No driving for 24 hrs Call Your Doctor For: Persistent or heavy bleeding IF UNABLE TO CONTACT YOUR PHYSICIAN AND YOU FEEL IT IS AN EMERGENCY, GO TO THE NEAREST EMERGENCY ROOM OR CALL 911 I, ROCK HARRIS, have received the attached patient education materials/instructio ns and have verbalized understanding: May we do a follow up call? Yes No I was present when discharge instructions were given Patient Signature Date Clinican/Nurse Signature Date Follow up: Pharmacy Information: You may receive a survey from [employer] asking you to rate your care experience. Your feedback is important and will help us understand what we do well and how we can improve the quality of care we provide to you, your loved ones and our community. It???s an honor to serve you. Thank you for choosing [facility] HERE ARE THE MEDICATION CHANGES THAT OCCURRED DURING YOUR HOSPITAL STAY Medications to Continue with No Changes Other Medications buPROPion (buPROPion 150 mg/24 hours XL Tab) 1 Tablets By Mouth every 24 hours. Refills: 3. lisinopril (lisinopril 20 mg Tab) 1 Tablets By Mouth every day. Refills: 3. tirzepatide Subcutaneous every week. 20 units. PATIENT EDUCATION INFORMATION Instructions: Medication Leaflets: Normal [facility] Ambulatory Visit Summaryon 1 02-11-2023 Ambulatory Visit Summary Ambulatory Visit Summary ROCK HARRIS :1975 Visit Date:12/13/2023 Ambulatory Visit Instructions Your Diagnosis Positive colorectal cancer screening using Cologuard test Sleep apnea HTN (hypertension) Your Care Team Attending Physician - Mateus RANGEL, Gregorio Reid Primary Care Physician - Anselmo Leiva MD This Is Your Medications List Contact prescribing physician if questions or concerns buPROPion (buPROPion 150 mg/24 hours XL Tab) lisinopril (lisinopril 20 mg Tab) tirzepatide Procedures Performed Dental, Laser. Discharge Vitals Heart Rate (Peripheral) 80 Blood Pressure 106/72 Height 174 cm Height 69 in Weight 116 kg Weight 255.2 lb BMI 38.31 Medications What How Much When Instructions Unchanged buPROPion (buPROPion 150 mg/ 24 hours XL Tab) 1 Tablets By Mouth Every 24 hours Contact prescribing physician if questions or concerns Unchanged lisinopril (lisinopril 20 mg Tab) 1 Tablets By Mouth Every day Contact prescribing physician if questions or concerns Unchanged tirzepatide Subcutaneous Every week 20 units Contact prescribing physician if questions or concerns Allergies sulfa drugs Problems Ongoing - Any problem that you are currently receiving treatment for. Anxiety Arthritis Depression HLD (hyperlipidemia) HTN (hypertension) Physical exam Positive colorectal cancer screening using Cologuard test Sleep apnea Patient Survey You may receive a survey via text or e-mail asking about your office visit. Please share your experience with us by completing your survey. We appreciate your feedback and thank you for choosing us for your care. Normal [facility] Gastroenterology Office/Clin ic Noteon 12-13-2023 Gastroenterology Office/Clinic Note Gastroenterology Office/Clinic Note Chief Complaint Positive cologuard HPI Staff Patient is a(n) 48 year old male who was referred by Dr Leiva for a positive Cologuard on 10/27/23. Denies Fhx colon cancer. Denies previous EGD/Colonoscopy. Denies n/v/c/d, abd pain, bloody or mucus stools. Blood thinners? no GLP-1 agonists- Tirzepatide Review of Systems PHQ Score Initial Depression Screen Score: 2 SCORE Physical Exam Vitals & Measurements HR: 80(Peripheral) BP: 106/72 HT: 69 in HT: 174 cm WT: 116 kg WT: 255.2 lb BMI: 38.31 Assessment/Plan 1. Positive colorectal cancer screening using Cologuard test (R19.5: Other fecal abnormalities) Discussed risk and benefits of colonoscopy, proceed with colonoscopy, asymptomatic otherwise, average risk otherwise Ordered: Colonoscopy (Hospital Procedure) 2. Sleep apnea (G47.30: Sleep apnea, unspecified) Ordered: Colonoscopy (Hospital Procedure) 3. HTN (hypertension) (I10: Essential (primary) hypertension) Ordered: Colonoscopy (Hospital Procedure) Follow-up No qualifying data available Problem List/Past Medical History Ongoing Anxiety Arthritis Depression HLD (hyperlipidemia) HTN (hypertension) Physical exam Positive colorectal cancer screening using Cologuard test Sleep apnea Historical No qualifying data Procedure/Surgical History Dental, Laser. Medications buPROPion 150 mg/24 hours XL Tab, 150 mg= 1 tab(s), Oral, q24hr, 3 refills lisinopril 20 mg Tab, 20 mg= 1 tab(s), Oral, Daily, 3 refills tirzepatide, SubCutaneous, qWeek Allergies sulfa drugs Social History Alcohol Current. Beer. 1-2 times per week., 12/11/2023 Substance Abuse Never., 12/11/2023 Tobacco Former smoker, quit more than 30 days ago Tobacco Use:. Never Smokeless Tobacco Use:. Cigarettes, 12/13/2023 Family History Diabetes mellitus type 1: Mother. Diabetes mellitus type 2: Father. Heart disease: Grandparent. Hypertension: Mother and Father. Immunizations Vaccine Date Status influenza virus vaccine, inactivated 12/17/2022 Given SARS-CoV-2 (COVID-19) mRNA BNT-162b2 vax 02/03/2021 Recorded influenza virus vaccine, inactivated 11/14/2020 Recorded SARS-CoV-2 (COVID-19) mRNA BNT-162b2 vax 05/30/2020 Recorded SARS-CoV-2 (COVID-19) mRNA BNT-162b2 vax 05/09/2020 Recorded influenza virus vaccine, inactivated 10/24/2019 Recorded diphtheria/pertussis , acel/tetanus adult 05/02/2015 Recorded Normal [facility] Comment on above: Result Comment: Elec tronically Signed By: Mateus RANGEL, Gregorio Reid\.br\Date and Time Signed: 12/13/23 09:49 EST Ambulatory Visit Summaryon 0 10-14-2023 Ambulatory Visit Summary Ambulatory Visit Summary ROCK HARRIS :1975 Visit Date:10/14/2023 Ambulatory Visit Instructions Your Diagnosis Physical exam Anxiety Major depressive disorder with single episode, in full remission Obstructive sleep apnea syndrome BMI 39.0-39.9,adult Class 1 obesity due to excess calories in adult HTN (hypertension) Your Care Team Attending Physician - Anselmo Leiva MD Primary Care Physician - Anselmo Leiva MD This Is Your Medications List buPROPion (buPROPion 150 mg/24 hours XL Tab) lisinopril (lisinopril 20 mg Tab) Procedures Performed Dental, Laser. Discharge Vitals Temperature (Oral) 36.9 ?C Heart Rate (Peripheral) 78 Respiratory Rate 16 Blood Pressure 148/100 Height 174.5 cm Height 69 in Weight 121.6 kg Weight 267.52 lb BMI 39.93 Medications What How Much When Instructions Unchanged buPROPion (buPROPion 150 mg/ 24 hours XL Tab) 1 Tablets By Mouth Every 24 hours Unchanged lisinopril (lisinopril 20 mg Tab) 1 Tablets By Mouth Every day Allergies sulfa drugs Problems Ongoing - Any problem that you are currently receiving treatment for. Anxiety Arthritis Depression HTN (hypertension) Physical exam Sleep apnea Patient Survey You may receive a survey via text or e-mail asking about your office visit. Please share your experience with us by completing your survey. We appreciate your feedback and thank you for choosing us for your care. Normal [facility] CBC w/ Auto Diffon 4 Basophils/100 WBC (Bld) 0.8 % Normal 0.0-2.0 [facility] Comment on above: Performed By: #### 2 [id number] #### [facility] Laboratory [address] [place] [address] Basophils/Leukocytes Auto (Bld) [Pure # fraction] 0.0 E9/L Normal 0.0-0.2 [facility] Comment on above: Performed By: #### 2 [id number] #### [facility] [address] [place] [address] Eosinophils (Bld) [#/Vol] 0.3 E9/L Normal 0.0-0.5 [facility] Comment on above: Performed By: #### 2 [id number] #### [facility] [address] [place] [address] Eosinophils/100 WBC (Bld) 4.4 % Normal 0.0-8.0 [facility] Comment on above: Performed By: #### 2 [id number] #### [facility] [address] [place] [address] Erythrocyte distribution width (RBC) [Ratio] 12.9 % Normal 10.9-14.2 [facility] Comment on above: Performed By: #### 2 [id number] #### [facility] [address] [place] [address] Hematocrit (Bld) [Volume fraction] 41.1 % Normal 37.7-49.0 [facility] Comment on above: Performed By: #### 2 [id number] #### [facility] [address] [place] [address] Hemoglobin (Bld) [Mass/Vol] 14.1 g/dL Normal 13.5-17.5 [facility] Comment on above: Performed By: #### 2 [id number] #### [facility] [address] [place] [address] Lymphocytes (Bld) [#/Vol] 1.8 E9/L Normal 1.0-4.0 [facility] Comment on above: Performed By: #### 2 [id number] #### [facility] [address] [place] [address] Lymphocytes/100 WBC (Bld) 27.9 % Normal 14.0-50.0 [facility] Comment on above: Performed By: #### 2 [id number] #### [facility] [address] [place] [address] MCH (RBC) [Entitic mass] 32.0 pg Normal 27.0-34.0 [facility] Comment on above: Performed By: #### 2 [id number] #### [facility] [address] [place] [address] MCHC (RBC) [Mass/Vol] 34.3 g/dL Normal 31.4-36.0 [facility] Comment on above: Performed By: #### 2 [id number] #### [facility] [address] [place] [address] MCV (RBC) [Entitic vol] 93.2 fL Normal 80.0-100.0 [facility] Comment on above: Performed By: #### 2 [id number] #### [facility] Laboratory [address] [place] [address] Monocytes (Bld) [#/Vol] 0.5 E9/L Normal 0.2-1.0 [facility] Comment on above: Performed By: #### 2 [id number] #### [facility] Laboratory [address] [place] [address] Neutrophils (Bld) [#/Vol] 3.8 E9/L Normal 2.0-7.5 [facility] Comment on above: Performed By: #### 2 [id number] #### [facility] Laboratory [address] [place] [address] Neutrophils/100 WBC (Bld) 59.2 % Normal 36.0-75.0 [facility] Comment on above: Performed By: #### 2 [id number] #### [facility] Laboratory [address] [place] [address] Platelet mean volume (Bld) [Entitic vol] 7.5 fL Normal 6.4-10.8 [facility] Comment on above: Performed By: #### 2 [id number] #### [facility] Laboratory [address] [place] [address] Platelets (Bld) [#/Vol] 305.0 E9/L Normal 150.0-500.0 [facility] Comment on above: Performed By: #### 2 [id number] #### [facility] Laboratory [address] [place] [address] RBC (Bld) [#/Vol] 4.4 E12/L Normal 4.3-5.9 [facility] Comment on above: Performed By: #### 2 [id number] #### [facility] Laboratory [address] [place] [address] WBC corrected for nucl RBC Auto (Bld) [#/Vol] 6.4 E9/L Normal 4.0-11.0 [facility] Comment on above: Performed By: #### 2 [id number] #### [facility] Laboratory [address] [place] [address] CHEMISTRYOrdered By: SYSTEM SYSTEM on 10-14-2023 Albumin [Mass/Vol] 4.8 g/dL Normal 3.3 - 5.0 gm/dL Remisol Chem Albumin/Globulin [Mass ratio] 1.7 {ratio} Normal 1.1 - 2.2 [facility] Chem ALP [Catalytic activity/Vol] 45 [iU]/d Normal 21 - 98 Int._Unit/L Rem[facility] Chem ALT No additional P-5'-P [Catalytic activity/Vol] 25 [iU]/d Normal 6 - 46 Int._Unit/L [facility] Chem Anion gap [Moles/Vol] 12 mmol/L Normal 6 - 16 mEq/L R emisol Chem AST [Catalytic activity/Vol] 20 [iU]/d Normal 5 - 43 Int._Unit/L [facility] Chem Bilirubin [Mass/Vol] 0.8 mg/dL Normal 0.0 - 1 .1 mg/dL [facility] Calcium [Mass/Vol] 9.5 mg/dL Normal 8.9 - 11. 1 mg/dL [facility] Chloride [Moles/Vol] 103 mmol/L Normal 101 - 1 11 mmol/L [facility] Cholesterol [Mass/Vol] 222 mg/dL High 120 - 200 mg/dL [facility] Cholesterol in HDL [Mass/Vol] 44 mg/dL Invalid Interpretation Code [facility] Comment on above: Result Comment: '>= 60 LOW RISK' '<= 40 HIGH RISK' Cholesterol in LDL [Mass/Vol] 134 mg/dL High <=129mg/dL [facility] Chem Cholesterol in VLDL [Mass/Vol] 60 mg/dL High 7 - 40 mg/dL [facility] CO2 [Moles/Vol] 26 mmol/L Normal 21 - 31 mmol/L [facility] Chem Creatinine [Mass/Vol] 0.8 mg/dL Normal 0.5 - 1.3 mg/dL [facility] Chem eGFR 110 mL/min/1.73 m2 Normal >=59mL/mi n/1. 73 m2 [facility] Chem Globulin (S) [Mass/Vol] 2.8 g/dL Normal 1.4 - 4.0 gm/dL [facility] Chem Glucose [Mass/Vol] 95 mg/dL Normal 55 - 199 mg/dL [facility] Chem Potassium [Moles/Vol] 4.5 mmol/L Normal 3.5 - 5.3 mmol/L [facility] Chem Protein [Mass/Vol] 7.6 g/dL Normal 6.0 - 7.8 gm/dL [facility] Sodium [Moles/Vol] 136 mmol/L Normal 135 - 145 mmol/L [facility] Triglyceride [Mass/Vol] 299 mg/dL High <=149mg/dL [facility] Chem Urea nitrogen [Mass/Vol] 15 mg/dL Normal 5 - 21 mg/dL [facility] Urea nitrogen/Creatinine [Mass ratio] 19 mg/mg Normal 10 - 20 Remisol Chem CMPon 10-14-2023 Albumin [Mass/Vol] 4.8 g/dL Normal 3.3-5.0 [facility] Comment on above: Performed By: #### 2 [id number] #### [facility] Laboratory [address] [place] [address] Albumin/Globulin (S) [Mass conc ratio] 1.7 Normal 1.1-2.2 [facility] Comment on above: Performed By: #### 2 [id number] #### [facility] Laboratory [address] [place] [address] ALP [Catalytic activity/Vol] 45 Int._Unit/L Normal 21-98 [facility] Comment on above: Performed By: #### 2 [id number] #### [facility] Laboratory [address] [place] [address] ALT No additional P-5'-P [Catalytic activity/Vol] 25 Int._Unit/L Normal 6-46 [facility] Comment on above: Performed By: #### 2 [id number] #### [facility] [address] [place] [address] Anion gap [Moles/Vol] 12 mmol/L Normal 6-16 [facility] Comment on above: Performed By: #### 2 [id number] #### [facility] Laboratory [address] [place] [address] AST [Catalytic activity/Vol] 20 Int._Unit/L Normal 5-43 [facility] Comment on above: Performed By: #### 2 [id number] #### [facility] Laboratory [address] [place] [address] Bilirubin [Mass/Vol] 0.8 mg/dL Normal 0.0-1.1 [facility] Comment on above: Performed By: #### 2 [id number] #### [facility] Laboratory [address] [place] [address] Calcium [Mass/Vol] 9.5 mg/dL Normal 8.9-11.1 [facility] Comment on above: Performed By: #### 2 [id number] #### [facility] Laboratory [address] [place] [address] Chloride [Moles/Vol] 103 mmol/L Normal 101-111 [facility] Comment on above: Performed By: #### 2 [id number] #### [facility] Laboratory [address] [place] [address] CO2 [Moles/Vol] 26 mmol/L Normal 21-31 [facility] Comment on above: Performed By: #### 2 [id number] #### [facility] Laboratory [address] [place] [address] Creatinine [Mass/Vol] 0.8 mg/dL Normal 0.5-1.3 [facility] Comment on above: Performed By: #### 2 [id number] #### [facility] Laboratory [address] [place] [address] Globulin (S) [Mass/Vol] 2.8 g/dL Normal 1.4-4.0 [facility] Comment on above: Performed By: #### 2 106645 #### [facility] Laboratory [address] [place] [address] Glucose [Mass/Vol] 95 mg/dL Normal 55-199 [facility] Comment on above: Performed By: #### 2 [id number] #### [facility] Laboratory [address] [place] [address] Potassium [Moles/Vol] 4.5 mmol/L Normal 3.5-5.3 [facility] Comment on above: Performed By: #### 2 [id number] #### [facility] [address] [place] [address] Protein [Mass/Vol] 7.6 g/dL Normal 6.0-7.8 [facility] Comment on above: Performed By: #### 2 [id number] #### [facility] [address] [place] [address] Sodium [Moles/Vol] 136 mmol/L Normal 135-145 [facility] Comment on above: Performed By: #### 2 [id number] #### [facility] [address] [place] [address] Urea nitrogen [Mass/Vol] 15 mg/dL Normal 5-21 [facility] Comment on above: Performed By: #### 2 [id number] #### [facility] [address] [place] [address] Urea nitrogen/Creatinine [Mass ratio] 19 No Units Normal 10-20 [facility] Comment on above: Performed By: #### 2 [id number] #### [facility] Laboratory [address] [place] [address] Family Medicine Office/Clini c Noteon 10-14-2023 Family Medicine Office/Clinic Note Family Medicine Office/Clinic Note HPI Staff Rock is a 48 year old male presenting for wellness PE and labs Health Maintenance: Colonoscopy: none PSA: none Last Labs: Dec 2022 questions/concerns: needs bupropion and lisinopril refilled 90 days with 3 rfs to mail away [facility] History of Present Illness - See staff HPI. Review of Systems PHQ Score Initial Depression Screen Score: 1 SCORE Physical Exam Vitals & Measurements T: 36.9 ?C(Oral) HR: 78(Peripheral) RR: 16 BP: 148/100 SpO2: 99% HT: 69 in HT: 174.5 cm WT: 121.6 kg WT: 267.52 lb BMI: 39.93 General: alert, no acute distress ENMT: oral mucosa moist, Cardiovascular: regular rate and rhythm, normal peripheral perfusion Respiratory: Lungs CTA, respirations non labored Extremities: no deformity, no trauma Neurological: oriented x 4, LOC appropriate for age, CN II-XII intact, motor strength equal & normal bilaterally, speech normal Abdomen: Soft, Nontender, Non-distended, + BS Assessment/Plan 1. Physical exam (Z00.00: Encounter for general adult medical examination without abnormal findings) Anticipatory guidance given. Discussed diet and exercise. Discussed immunizations. Ordered: CBC w/ Auto Diff Comprehensive Metabolic Panel Lipid Panel 2. Anxiety (F41.9: Anxiety disorder, unspecified) Well-controlled today. Will refill medications. Ordered: CBC w/ Auto Diff Comprehensive Metabolic Panel Lipid Panel 3. Major depressive disorder with single episode, in full remission (F32.5: Major depressive disorder, single episode, in full remission) Well-controlled today. Will refill medications. Ordered: CBC w/ Auto Diff Comprehensive Metabolic Panel Lipid Panel 4. Obstructive sleep apnea syndrome (G47.33: Obstructive sleep apnea (adult) (pediatric)) Ordered: CBC w/ Auto Diff Comprehensive Metabolic Panel Lipid Panel 5. BMI 39.0-39.9,adult (Z68.39: Body mass index [BMI] 39.0-39.9, adult) Encourage diet and exercise of the patient has gained weight since last visit. Ordered: CBC w/ Auto Diff Comprehensive Metabolic Panel Lipid Panel 6. Class 1 obesity due to excess calories in adult (E66.09: Other obesity due to excess calories) As above Ordered: CBC w/ Auto Diff Comprehensive Metabolic Panel Lipid Panel 7. HTN (hypertension) (I10: Essential (primary) hypertension) Not at goal. We will increase medication and follow-up in 1 month. Ordered: CBC w/ Auto Diff Comprehensive Metabolic Panel Lipid Panel Follow-up No qualifying data available Problem List/Past Medical History Ongoing Anxiety Arthritis Depression HTN (hypertension) Physical exam Sleep apnea Historical No qualifying data Procedure/Surgical History Dental, Laser. Medications buPROPion 150 mg/24 hours XL Tab, 150 mg= 1 tab(s), Oral, q24hr lisinopril 20 mg Tab, 20 mg= 1 tab(s), Oral, Daily, 1 refills Allergies sulfa drugs Social History Tobacco Former smoker, quit more than 30 days ago Tobacco Use:. Cigarettes, 10/14/2023 Family History Diabetes mellitus type 1: Mother. Diabetes mellitus type 2: Father. Heart disease: Grandparent. Hypertension: Mother and Father. Immunizations Vaccine Date Status influenza virus vaccine, inactivated 12/17/2022 Given SARS-CoV-2 (COVID-19) mRNA BNT-162b2 vax 02/03/2021 Recorded influenza virus vaccine, inactivated 11/14/2020 Recorded SARS-CoV-2 (COVID-19) mRNA BNT-162b2 vax 05/30/2020 Recorded SARS-CoV-2 (COVID-19) mRNA BNT-162b2 vax 05/09/2020 Recorded influenza virus vaccine, inactivated 10/24/2019 Recorded diphtheria/pertussis , acel/tetanus adult 05/02/2015 Recorded Normal [facility] Comment on above: Result Comment: Elec tronically Signed By: Cali RANGEL, Anselmo Matthews.br\Date and Time Signed: 10/14/23 08:53 EDT HEMATOLOGYOrdered By: SYSTEM SYSTEM on 10-14-2023 Basophils/100 WBC (Bld) 0.8 % Normal 0.0 - 2.0 % Remisol Heme Basophils/Leukocytes Auto (Bld) [Pure # fraction] 0.0 E9/L Normal 0.0 - 0.2 E9/L [facility] Heme Eosinophils (Bld) [#/Vol] 0.3 E9/L Normal 0.0 - 0.5 E9/L Rem[facility] Heme Eosinophils/100 WBC (Bld) 4.4 % Normal 0.0 - 8.0 % Rem[facility] Heme Erythrocyte distribution width (RBC) [Ratio] 12.9 % Normal 10.9 - 14.2 % Rem[facility] Heme Hematocrit (Bld) [Volume fraction] 41.1 % Normal 37.7 - 49.0 % Rem[facility] Heme Hemoglobin (Bld) [Mass/Vol] 14.1 g/dL Normal 13.5 - 17.5 gm/dL [facility] Heme Lymphocytes (Bld) [#/Vol] 1.8 E9/L Normal 1.0 - 4.0 E9/L [facility]e Lymphocytes/100 WBC (Bld) 27.9 % Normal 14.0 - 50.0 % Rem[facility] Heme MCH (RBC) [Entitic mass] 32.0 pg Normal 27.0 - 34.0 pg Remisol Heme MCHC (RBC) [Mass/Vol] 34.3 g/dL Normal 31.4 - 36.0 gm/dL Rem[facility] Heme MCV (RBC) [Entitic vol] 93.2 fL Normal 80.0 - 100.0 fL [facility] Heme Monocytes (Bld) [#/Vol] 0.5 E9/L Normal 0.2 - 1.0 E9/L [facility] Heme Monocytes/100 WBC (Bld) 7.7 % Normal 4.0 - 14.0 % [facility] Heme Neutrophils (Bld) [#/Vol] 3.8 E9/L Normal 2.0 - 7.5 E9/L Rem[facility] Heme Neutrophils/100 WBC (Bld) 59.2 % Normal 36.0 - 75.0 % [facility] Heme Platelet mean volume (Bld) [Entitic vol] 7.5 fL Normal 6.4 - 10.8 fL [facility] Heme Platelets (Bld) [#/Vol] 305.0 E9/L Normal 150.0 - 500.0 E9/L Rem[facility] Heme RBC (Bld) [#/Vol] 4.4 E12/L Normal 4.3 - 5.9 E12/L [facility] Heme WBC corrected for nucl RBC Auto (Bld) [#/Vol] 6.4 E9/L Normal 4.0 - 11.0 E9/L [facility] Heme Lipid Panelon 10-14-2023 Cholesterol in HDL [Mass/Vol] 44 mg/dL Invalid Interpretation Code [facility] Comment on above: Result Comment: '>= 60 LOW RISK' '<= 40 HIGH RISK' Performed By: #### 2 [id number] ####[facility] [address] [facility] [address] Cholesterol [Mass/Vol] 222 mg/dL High 120-200 [facility] Comment on above: Performed By: #### 2 [id number] ####[facility] [address] [place] [address] Cholesterol in LDL [Mass/Vol] 134 mg/dL High <=129 [facility] Comment on above: Performed By: #### 2 [id number] ####[facility] [address] [place] [address] Cholesterol in VLDL [Mass/Vol] 60 mg/dL High 7-40 [facility] Comment on above: Performed By: #### 2 [id number] ####[facility] [address] [place] [address] Triglyceride [Mass/Vol] 299 mg/dL High <=149 [facility] Comment on above: Performed By: #### 2 [id number] ####[facility] [address] [place] [address] eGFRon 10-14-2023 eGFR 110 mL/min/1.73 m2 Normal >=59 [facility] Comment on above: Order Comment: Order added by Discern Expert. Performed By: #### 1 [id number] #### [facility] Laboratory [address] [place] [address] Lab Reportson 12-28-2022 Lab Reports [id number]# 1.00TIFF Normal [facility] Lab Reports [id number]# 1.00TIFF Normal [facility] Ambulatory Visit Summaryon 1 02-16-2022 Ambulatory Visit Summary ROCK HARRIS :1975 Visit Date:12/17/2022 Ambulatory Visit Instructions Your Diagnosis Physical exam Anxiety Arthritis Depression HTN (hypertension) Sleep apnea BMI 35.0-35.9,adult Class 1 obesity due to excess calories in adult Encounter for immunization Your Care Team Attending Physician - Anselmo Leiva MD Primary Care Physician - Anselmo Leiva MD This Is Your Medications List buPROPion (Bupropion SR 150mg Tab-ER) lisinopril (lisinopril 20 mg Tab) Procedures Performed Dental, Laser. Discharge Vitals Temperature (Temporal Artery) 36.6 ?C Heart Rate (Peripheral) 78 Respiratory Rate 16 Blood Pressure 126/80 Height 174.5 cm Height 69 in Weight 108.6 kg Weight 238.92 lb BMI 35.66 What to do next Scheduled Follow-Up Appointments Wednesday 7:15 AM EST With: Anselmo Leiva MD Where: [facility] Invalid Interpretation Code Anxiety [facility] Consent for Flu Vaccineon Consent for Flu Vaccine [id number] #1.00TIFF Normal [facility] [facility] [place] 12-17-2022 Family Medicine Office/Clinic Note HPI Staff Rock is a 47 year old male presenting to establish care Needs wellness and biometrics labs Establish Care: History: HTN, Sleep Apnea, Anxiety Last provider: Jade Any recent labs: Dec 2021 Health Maintenance UTD: Colonoscopy: none yet will do cologard PSA: none flu: will take today Acute: none Current issues/complaints: needs [facility]s [facility] History of Present Illness The patient presents for evaluation of multiple medical concerns. He comes in once a year for his free wellness visit. He denies any issues with lisinopril. His depression and anxiety are better than recent years. He has started smoking a lot more weed than he used to. He works third shift and does not get restless sleep. He has been using a CPAP machine every day for the last 10 years. He denies any issues with sexual activity. He does not need to be tested for STDs. His sleep apnea is all related to him smoking a lot more weed than he used to. His sleep, anxiety, and depression are better. . He is on lisinopril. Physical Exam Vitals & Measurements T: 36.6 ?C(Temporal Artery) HR: 78(Peripheral) RR: 16 BP: 126/80 SpO2: 99% HT: 69 in HT: 174.5 cm WT: 108.6 kg WT: 238.92 lb BMI: 35.66 General: alert, no acute distress ENMT: oral mucosa moist, Cardiovascular: regular rate and rhythm, normal peripheral perfusion Respiratory: Lungs CTA, respirations non labored Extremities: no deformity, no trauma Neurological: oriented x 4, LOC appropriate for age, CN II-XII intact, motor strength equal & normal bilaterally, speech normal Abdomen: Soft, Nontender, Non-distended, + BS Assessment/Plan 1. Physical exam (Z00.00: Encounter for general adult medical examination without abnormal findings) Anticipatory guidance given. Discussed diet and exercise. Discussed immunizations. Ordered: influenza virus vaccine, inactivated, 0.5 mL, Injection, IntraMuscular, Once, Stop date 12/17/22 8:00:00 EST, Routine, Start date 12/17/22 8:00:00 EST CBC w/ Auto Diff Comprehensive Metabolic Panel Lipid Panel 2. Anxiety (F41.9: Anxiety disorder, unspecified) - Well controlled. - Will refill meds today Ordered: influenza virus vaccine, inactivated, 0.5 mL, Injection, IntraMuscular, Once, Stop date 12/17/22 8:00:00 EST, Routine, Start date 12/17/22 8:00:00 EST CBC w/ Auto Diff Comprehensive Metabolic Panel Lipid Panel 3. Arthritis (M19.90: Unspecified osteoarthritis, unspecified site) - No issues at this time Ordered: influenza virus vaccine, inactivated, 0.5 mL, Injection, IntraMuscular, Once, Stop date 12/17/22 8:00:00 EST, Routine, Start date 12/17/22 8:00:00 EST CBC w/ Auto Diff Comprehensive Metabolic Panel Lipid Panel 4. Depression (F32.A: Depression, unspecified) - In remission. Ordered: influenza virus vaccine, inactivated, 0.5 mL, Injection, IntraMuscular, Once, Stop date 12/17/22 8:00:00 EST, Routine, Start date 12/17/22 8:00:00 EST CBC w/ Auto Diff Comprehensive Metabolic Panel Lipid Panel 5. HTN (hypertension) (I10: Essential (primary) hypertension) - At goal. Ordered: influenza virus vaccine, inactivated, 0.5 mL, Injection, IntraMuscular, Once, Stop date 12/17/22 8:00:00 EST, Routine, Start date 12/17/22 8:00:00 EST CBC w/ Auto Diff Comprehensive Metabolic Panel Lipid Panel 6. Sleep apnea (G47.30: Sleep apnea, unspecified) - Continue using CPAP Ordered: CBC w/ Auto Diff Comprehensive Metabolic Panel Lipid Panel 7. BMI 35.0-35.9,adult (Z68.35: Body mass index [BMI] 35.0-35.9, adult) - BMI education given Ordered: CBC w/ Auto Diff Comprehensive Metabolic Panel Lipid Panel 8. Class 1 obesity due to excess calories in adult (E66.09: Other obesity due to excess calories) - Diet and exercise discussed in detail. - Pt will follow up in 2 month to discuss med options. Ordered: CBC w/ Auto Diff Comprehensive Metabolic Panel Lipid Panel 9. Encounter for immunization (Z23: Encounter for immunization) - Flu shot given. Ordered: FIRST VACCINE w/o Board Layer Admin Charge [id number] Follow-up No qualifying data available Problem List/Past Medical History Ongoing Anxiety Arthritis Depression HTN (hypertension) Physical exam Sleep apnea Historical No qualifying data Procedure/Surgical History Dental, Laser. Medications Bupropion SR 150mg Tab-ER, 150 mg, Oral, Daily lisinopril 20 mg Tab, 20 mg= 1 tab(s), Oral, Daily Allergies sulfa drugs Social History Tobacco Former smoker, quit more than 30 days ago Tobacco Use:. Cigarettes, 12/17/2022 Family History Diabetes mellitus type 1: Mother. Diabetes mellitus type 2: Father. Heart disease: Grandparent. Hypertension: Mother and Father. Immunizations Vaccine Date Status influenza virus vaccine, inactivated 12/17/2022 Given SARS-CoV-2 (COVID-19) mRNA BNT-162b2 vax 02/03/2021 Recorded influenza virus vaccine, inactivated 11/14/2020 Recorded SARS-Co (more content not included)... [facility] Comment on above: Result Comment: Elec tronically Signed By: Cali RANGEL, Anselmo Doss\.br\Date and Time Signed: 12/17/22 07:55 EST [employer] 12-17-2022 Forms [id number] #[id number] [facility] CBC AUTO DIFFon 12-26-2021 BASO # 0.0 103/ul Normal 0.0-0.1 [facility] Comment on above: Performed By: #### C BC #### [facility] [address] [place] [address] Dr. Roxann Smith Basophils/100 WBC (Bld) 0.6 % Normal 0.2-2.0 [facility] Comment on above: Performed By: #### C BC #### [facility] [address] [address] [address] Roxann Smith EO # 0.3 103/ul Normal 0.0-0.7 [facility] Comment on above: Performed By: #### C BC #### [facility] [address] [place] [address] Dr. Roxann Smith Eosinophils/100 WBC (Bld) 5.0 % Normal 0.9-7.0 [facility] Comment on above: Performed By: #### C BC #### [facility] [address] [place] [address] Dr. Roxann Smith Erythrocyte distribution width (RBC) [Ratio] 12.6 % Normal 11.0-15.0 [facility] Comment on above: Performed By: #### C BC #### [facility] [address] [place] [address] Dr. Roxann Smith Hematocrit (Bld) [Volume fraction] 37.7 % Critically low 42.0-54.0 [facility] Comment on above: Performed By: #### C BC #### [facility] [address] [place] [address] Dr. Roxann Smith Hemoglobin (Bld) [Mass/Vol] 12.8 g/dL Critically low 14.0-18.0 [facility] Comment on above: Performed By: #### C BC #### [facility] [address] [place] [address] Dr. Roxann Smith IG # 0.05 10e3/ul Critically high 0.00-0.03 [facility] Comment on above: Performed By: #### C BC #### [facility] [address] [place] [address] Dr. Roxann Smith IG % 0.8 % Critically high 0.0-0.5 [facility] Comment on above: Performed By: #### C BC #### [facility] [address] [place] [address] Dr. Roxann Smith LYMPH # 2.1 103/ul Normal 1.2-3.8 [facility] Comment on above: Performed By: #### C BC #### [facility] [address] [place] [address] Dr. Roxann Smith Lymphocytes/100 WBC (Bld) 34.0 % Normal 20.5-60.0 [facility] Comment on above: Performed By: #### C BC #### [facility] [address] [place] [address] Dr. Roxann Smith MANUAL DIFF REQ NO Normal [facility] Comment on above: Performed By: #### C BC #### [facility] [address] [place] [address] Dr. Roxann Smith MCH (RBC) [Entitic mass] 31.5 pg Normal 25.9-34.0 [facility] Comment on above: Performed By: #### C BC #### [facility] [address] [place] [address] Dr. Roxann Smith MCHC (RBC) [Mass/Vol] 34.0 g/dL Normal 29.9-35.2 [facility] Comment on above: Performed By: #### C BC #### [facility] [address] [place] [address] Dr. Roxann Smith MCV (RBC) [Entitic vol] 92.9 fL Normal 80.0-94.0 [facility] Comment on above: Performed By: #### C BC #### [facility] [address] [place] [address] Dr. Roxann Smith MONO # 0.5 103/ul Normal 0.3-0.8 [facility] Comment on above: Performed By: #### C BC #### [facility] [address] [place] [address] Dr. Roxann Smith Monocytes/100 WBC (Bld) 8.1 % Normal 1.7-12.0 [facility] Comment on above: Performed By: #### C BC #### [facility] [address] [place] [address] Dr. Roxann Smith NEUT # 3.2 103/ul Normal 1.4-6.5 [facility] Comment on above: Performed By: #### C BC #### [facility] [address] [place] [address] Dr. Roxann Smith Neutrophils/100 WBC (Bld) 51.5 % Normal 43.0-75.0 [facility] Comment on above: Performed By: #### C BC #### [facility] [address] [place] [address] Dr. Roxann Simth Platelet mean volume (Bld) [Entitic vol] 8.8 fL Critically low 9.5-13.5 [facility] Comment on above: Performed By: #### C BC #### [facility] [address] [address] [address] Roxann Smith PLT 239 103/ul Normal 150-450 [facility] Comment on above: Performed By: #### C BC #### [facility] [address] [address] [address] Roxann Smith RBC 4.06 106/ul Critically low 4.70-6.10 [facility] Comment on above: Performed By: #### C BC #### [facility] [address] [address] [address] Roxann Smith WBC 6.3 103/ul Normal 4.0-11.0 [facility] Comment on above: Performed By: #### C BC #### [facility] [address] [place] [address] Dr. Roxann Smith FREE T3on 12-26-2021 FREE T3 3.15 pg/mlL Normal 2.18-3.98 [facility] Comment on above: Performed By: #### T SH, CMP, LIPID, FT3 #### [facility] [address] [place] [address] Dr. Roxann Smith FREE T4on 12-26-2021 Free T4 [Mass/Vol] 0.87 ng/dL Normal 0.76-1.46 [facility] Comment on above: Performed By: #### F T4 #### [facility] [address] [place] [address] Dr. Roxann Smith GLYCOHEMOGLOBIN A1Con 2021 ADA RECOMMENDATION SEE BELOW Normal [facility] Comment on above: Result Comment: ADA RECOMMENDED LIMIT 4.0 - 6.0 ADA THERAPEUTIC TARGET < 7.0 ACTION SUGGESTED > 7.0 Performed By: #### A 1C #### [facility] [address] [place] [address] Dr. Roxann Smith Glucose [Mass/Vol] 105 mg/dL Normal [facility] Comment on above: Performed By: #### A 1C #### [facility] [address] [place] [address] Dr. Roxann Smith HbA1c (Bld) [Mass fraction] 5.3 % Normal 4.5-6.2 [facility] Comment on above: Performed By: #### A 1C #### [facility] [address] [place] [address] Dr. Roxann Smith LIPID PROFILEon 12-26-2021 CHOL-HDL RATIO NORM SEE BELOW Normal [facility] Comment on above: Result Comment: 3.3 - 4.4 LOW RISK 4.4 - 7.1 AVERAGE RISK 7.1 - 11.0 MODERATE RISK >11.0 HIGH RISK Performed By: #### T SH, CMP, LIPID, FT3 #### [facility] [address] [address] [address] Roxann Smith Cholesterol [Mass/Vol] 206 mg/dL Critically high <=200 [facility] Comment on above: Performed By: #### T SH, CMP, LIPID, FT3 #### [facility] [address] [place] [address] Dr. Roxann Smith Cholesterol in HDL [Mass/Vol] 44 mg/dL Normal 40-60 [facility] Comment on above: Performed By: #### T SH, CMP, LIPID, FT3 #### [facility] [address] [address] [address] Roxann Smith Cholesterol in LDL [Mass/Vol] 113.6 mg/dL Normal [facility] Comment on above: Performed By: #### T SH, CMP, LIPID, FT3 #### [facility] [address] [place] [address] Dr. Roxann Smith Cholesterol.total/Chol esterol in HDL [Mass ratio] 4.7 {ratio} Normal [facility] Comment on above: Performed By: #### T SH, CMP, LIPID, FT3 #### [facility] [address] [address] [address] Roxann Smith HDL NORMAL > or = 60 mg/dl - LOW CARDIOVASCULAR RISK <40 mg/dl - HIGH CARDIOVASCULAR RISK Normal [facility] Comment on above: Performed By: #### T SH, CMP, LIPID, FT3 #### [facility] [address] [place] [address] Dr. Roxann Smith LDL CALC NORMAL SEE BELOW Normal [facility] Comment on above: Result Comment: <100 mg/dl OPTIMAL 100 - 129 mg/dl NEAR OR ABOVE OPTIMAL 130 - 159 mg/dl BORDERLINE HIGH 160 - 189 mg/dl HIGH >190 mg/dl VERY HIGH Performed By: #### T SH, CMP, LIPID, FT3 #### [facility] [address] [address] [address] Roxann Smith Triglyceride [Mass/Vol] 242 mg/dL Critically high <=150 [facility] Comment on above: Performed By: #### T SH, CMP, LIPID, FT3 #### [facility] [address] [address] [address] Roxann Smith VLDL CALC 48.4 mg/dL Normal [facility] Comment on above: Performed By: #### T SH, CMP, LIPID, FT3 #### [facility] [address] [place] [address] Dr. Roxann Smith PROF 14(COMP METB)on 022 Albumin [Mass/Vol] 3.9 g/dL Normal 3.4-5.0 [facility] Comment on above: Performed By: #### T SH, CMP, LIPID, FT3 #### [facility] [address] [place] [address] Dr. Roxann Smith Albumin/Globulin [Mass ratio] 1.1 {ratio} Normal [facility] Comment on above: Performed By: #### T SH, CMP, LIPID, FT3 #### [facility] [address] [place] [address] Dr. Roxann Smith ALP [Catalytic activity/Vol] 67 U/L Normal 46-116 [facility] Comment on above: Performed By: #### T SH, CMP, LIPID, FT3 #### [facility] [address] [address] [address] Roxann Smith ALT [Catalytic activity/Vol] 32 U/L Normal 16-63 [facility] Comment on above: Performed By: #### T SH, CMP, LIPID, FT3 #### [facility] [address] [place] [address] Dr. Roxann Smith Anion gap [Moles/Vol] 13.3 mmol/L Normal Th e [facility] Comment on above: Performed By: #### T SH, CMP, LIPID, FT3 #### [facility] [address] [address] [address] Roxann Smith AST [Catalytic activity/Vol] 12 U/L Critically low 15-37 [facility] Comment on above: Performed By: #### T SH, CMP, LIPID, FT3 #### [facility] [address] [address] [address] Roxann Smith Bilirubin [Mass/Vol] 0.3 mg/dL Normal 0.2-1.0 [facility] Comment on above: Performed By: #### T SH, CMP, LIPID, FT3 #### [facility] [address] [place] [address] Dr. Roxann Smith Calcium [Mass/Vol] 9.3 mg/dL Normal 8.5-10.1 [facility] Comment on above: Performed By: #### T SH, CMP, LIPID, FT3 #### [facility] [address] [place] [address] Dr. Roxann Smith Chloride [Moles/Vol] 105 mmol/L Normal 98-107 [facility] Comment on above: Performed By: #### T SH, CMP, LIPID, FT3 #### [facility] [address] [place] [address] Dr. Roxann Smith CO2 [Moles/Vol] 22.9 mmol/L Normal 21.0-32.0 [facility] Comment on above: Performed By: #### T SH, CMP, LIPID, FT3 #### [facility] [address] [place] [address] Dr. Roxann Smith Creatinine [Mass/Vol] 0.81 mg/dL Normal 0.70-1.30 [facility] Comment on above: Performed By: #### T SH, CMP, LIPID, FT3 #### [facility] [address] [place] [address] Dr. Roxann Smith EGFR-AF TURKISH >60 Normal >=60 [facility] Comment on above: Performed By: #### T SH, CMP, LIPID, FT3 #### [facility] [address] [address] [address] Roxann Smith EGFR-NON AF TURKISH >60 Normal >=60 [facility] Comment on above: Performed By: #### T SH, CMP, LIPID, FT3 #### [facility] [address] [place] [address] Dr. Roxann Smith Globulin (S) [Mass/Vol] 3.6 g/dL Normal [facility] Comment on above: Performed By: #### T SH, CMP, LIPID, FT3 #### [facility] [address] [place] [address] Dr. Roxann Smith Glucose [Mass/Vol] 97 mg/dL Normal 74-106 [facility] Comment on above: Performed By: #### T SH, CMP, LIPID, FT3 #### [facility] [address] [place] [address] Dr. Roxann Smith Potassium [Moles/Vol] 4.2 mmol/L Normal 3.5-5.1 [facility] Comment on above: Performed By: #### T SH, CMP, LIPID, FT3 #### [facility] [address] [place] [address] Dr. Roxann Smith Protein [Mass/Vol] 7.5 g/dL Normal 6.4-8.2 [facility] Comment on above: Performed By: #### T SH, CMP, LIPID, FT3 #### [facility] [address] [place] [address] Dr. Roxann Smith Sodium [Moles/Vol] 137 mmol/L Normal 136-145 [facility] Comment on above: Performed By: #### T SH, CMP, LIPID, FT3 #### [facility] [address] [place] [address] Dr. Roxann Smith Urea nitrogen [Mass/Vol] 15.0 mg/dL Normal 7.0-18.0 [facility] Comment on above: Performed By: #### T SH, CMP, LIPID, FT3 #### [facility] [address] [place] [address] Dr. Roxann Smith Urea nitrogen/Creatinine [Mass ratio] 18.5 mg/mg Normal [facility] Comment on above: Performed By: #### T SH, CMP, LIPID, FT3 #### [facility] [address], [place] [address] Dr. Roxann Smith TSHon 12-26-2021 TSH 2.877 uIU/mL Normal 0.358-3.740 [facility] Comment on above: Performed By: #### T SH, CMP, LIPID, FT3 #### [facility] [address], [place] [address] Dr. Roxann Smith Covid-19 PCR ([facility])on 02-08 SARS-CoV-2 (COVID-19) RNA SUSIE+probe Ql (Unsp spec) Not detected Normal NOT DETECTED [facility] Comment on above: Result Comment: This test is not yet approved or cleared by the [place] FDA. When there are no FDA-approved or cleared tests available, and other criteria are met, FDA can make tests available under an emergency access mechanism called an Emergency Use Authorization (EUA). The EUA for this test is supported by the [employer] of Health and Human Service's (HHS's) declaration that circumstances exist to justify the emergency use of in vitro diagnostics for the detection and/or diagnosis of the virus that causes COVID-19. This EUA will remain in effect (meaning this test can be used) for the duration of the COVID-19 declaration justifying emergency of IVDs, unless it is terminated or revoked by FDA (after which the test may no longer be used). When diagnostic testing is negative, the possibility of a false negative should be considered in the context of a patient's recent exposures and the presence of clinical signs and symptoms consistent with SARS-CoV-2. Performed By: #### C VDTBH #### [facility] [address], [place] [address] Dr. Roxann Smith Vital Signs Date Time Vital Sign Value Performing Clinician Facility 01-31-2024 13:08-0500 Diastolic blood pressure 71 mm[Hg] Gregorio Ignacio [facility] 01-31-2024 13:08-0500 Heart rate 71 /min Perkins Sarmini [facility] 01-31-2024 13:08-0500 Mean blood pressure 90 mm[Hg] Perkins Sarmini [facility] 01-31-2024 13:08-0500 Respiratory rate 19 /min Perkins Sarmini [facility] 01-31-2024 13:08-0500 SaO2% (BldA) [Mass fraction] 96 % Perkins Sarmini [facility] 01-31-2024 13:08-0500 Systolic blood pressure 128 mm[Hg] Perkins Sarmini [facility] 01-31-2024 12:55-0500 Diastolic blood pressure 61 mm[Hg] Perkins Sarmini [facility] 01-31-2024 12:55-0500 Heart rate 76 /min Perkins Sarmini [facility] 01-31-2024 12:55-0500 Mean blood pressure 80 mm[Hg] Perkins Sarmini [facility] 01-31-2024 12:55-0500 Respiratory rate 18 /min Perkins Sarmini [facility] 01-31-2024 12:55-0500 SaO2% (BldA) [Mass fraction] 98 % Perkins Sarmini [facility] 01-31-2024 12:55-0500 Systolic blood pressure 118 mm[Hg] Perkins Sarmini [facility] 01-31-2024 12:43-0500 Body temperature 97.52 [degF] Perkins Sarmini [facility] 01-31-2024 12:43-0500 Diastolic blood pressure 78 mm[Hg] Perkins Sarmini [facility] 01-31-2024 12:43-0500 Heart rate 74 /min Perkins Sarmini [facility] 01-31-2024 12:43-0500 Mean blood pressure 88 mm[Hg] Perkins Sarmini [facility] 01-31-2024 12:43-0500 Respiratory rate 20 /min Perkins Sarmini [facility] 01-31-2024 12:43-0500 SaO2% (BldA) [Mass fraction] 100 % Perkins Sarmini [facility] 01-31-2024 12:43-0500 Systolic blood pressure 109 mm[Hg] Perkins Sarmini [facility] 01-31-2024 12:40-0500 Respiratory rate 16 /min Perkins Sarmini [facility] 01-31-2024 12:35-0500 Respiratory rate 16 /min Perkins Sarmini [facility] 01-31-2024 12:25-0500 Respiratory rate 16 /min Perkins Sarmini [facility] 01-31-2024 11:25-0500 Blood Pressure Location Perkins Sarmini [facility] 01-31-2024 11:25-0500 Body temperature 98.78 [degF] Perkins Sarmini [facility] 12-13-2023 09:14-0500 Blood Pressure Location Perkins Sarmini [facility] 12-13-2023 09:14-0500 Diastolic blood pressure 72 mm[Hg] Perkins Sarmini [facility] 12-13-2023 09:14-0500 Heart rate 80 /min Perkins Sarmini [facility] 12-13-2023 09:14-0500 Systolic blood pressure 106 mm[Hg] Perkins Sarmini [facility] Encounters Encounter Date Encounter Type Care Provider Facility Start: 01-31-2024 End: 01-31-2024 ambulatory Perkins Talal Sarmini Facility:[facility] Start: 01-31-2024 End: 01-31-2024 Patient encounter procedure Perkins Talal Sarmini [facility] Start: 12-13-2023 End: 12-13-2023 ambulatory Perkins Talal Sarmini Facility:[facility] Start: 12-13-2023 End: 12-13-2023 Patient encounter procedure Perkins Talal Sarmini [facility] Start: 11-05-2023 ambulatory Anselmo Leiva Facility:[facility] Start: 10-14-2023 End: 10-14-2023 Lab Drop off Anselmo Leiva [facility] Start: 10-14-2023 End: 10-14-2023 ambulatory Anselmo Leiva Facility:[facility] [place] Start: 02-22-2023 ambulatory Anselmo Leiva Facility :[facility] Radha Start: 12-17-2022 End: 12-17-2022 ambulatory Anselmo Leiva [facility] Start: 11-18-2022 ambulatory Anselmo Leiva Facility:[facility] Start: 12-31-2021 Encounter for genera l adult medical examination without abnormal findings DR DURGA MARTINEZ [facility] Start: 12-26-2021 End: 12-27-[address] DURGA MARTINEZ Facility:[facility] Start: 12-26-2021 End: 12-27-2021 Encounter for general adult medical examination without abnormal findings DR DURGA MARTINEZ Facility:[facility] Start: 02-24-2021 End: 02-24-[address] DURGA MARTINEZ Facility:[facility] Procedures Date Procedure Procedure Detail Performing Clinician Start: 01-31-2024 Colonoscopy Gregorio pierre [facility] Anselmo Leiva Laser device (physic al object) Anselmo Leiva Immunizations Immunization Date Immunization Notes Care Provider Fa [facility] 12-17-2022 influenza, injectabl e, quadrivalent, preservative free Anselmo Leiva [facility] 02-03-2021 SARS-CoV-2 (COVID-19 ) mRNA BNT-162b2 vax Anselmo Leiva [facility] 11-14-2020 influenza virus vaccine, unspecified formulation Anselmo Leiva [facility] 05-30-2020 SARS-CoV-2 (COVID-19 ) mRNA BNT-162b2 vax Anselmo Leiva [facility] 05-09-2020 SARS-CoV-2 (COVID-19 ) mRNA BNT-162b2 vax Anselmo Leiva [facility] 10-24-2019 influenza virus vaccine, unspecified formulation Anselmo Leiva [facility] 05-02-2015 tetanus toxoid, redu lizbeth diphtheria toxoid, and acellular pertussis vaccine, adsorbed Anselmo Leiva [facility] Payers Date Payer Category Payer Unknown [id number] 2012 Unknown [id number] 1975 Unknown [id number] 2.16.84 [id number] 1975 Unknown [id number] 2.16.84 [id number] 1975 Unknown [id number] 2.16.8 [id number] 1975 Unknown [id number] 2.16.8 [id number] 1975 Unknown [id number] 2.16.8 [id number] 1975 Unknown [id number] 2.16.8 [id number] 1975 Unknown [id number] 2.16.8 [id number] 1975 Unknown [id number] 2.16.8 [id number] Social History Date Type Detail Facility Start: 10-14-2023 End: 12-13-2023 Tobacco smoking status Ex-smoker (finding) [facility] Sex Assigned At Male [facility] Tobacco smoking status Never [facility] Functional Status Date Assessment Result Facility 01-31-2024 Functional Status N/A [facility] 12-13-2023 Functional Status N/A [facility] Clinical Notes 01-31-2024 to 02-01-2024 Note Date & Type Note Facility 02-01-2024 Note Progress Note-Zohra erazo Patient: ROCK HARRIS Age: 48 years Sex: Male : 1975 Associated Diagnoses: None Author: Darius Spence Jr, DO Preoperative Information Anesthesia Preop Info: Time patient last ate or drank 01/31/2024 00:00:00. Anesthesia history: Patient history: None. Family history+: None. Informed consent: Signed by patient. Re-evaluation prior to induction: Initial evaluation reviewed: No significant change. Review of Systems Eye: Negative except as documented in history of present illness. Ear/Nose/Mouth/Throat: Negative except as documented in history of present illness. Respiratory: Negative except as documented in history of present illness. Cardiovascular: Negative except as documented in history of present illness. Musculoskeletal: Negative except as documented in history of present illness. Neurologic: Negative except as documented in history of present illness. Health Status Allergies: Allergic Reactions (Selected) Severity Not Documented Sulfa drugs- No reactions were documented. Problem list: All Problems Sleep apnea / SNOMED CT 528013805 / Confirmed Physical exam / SNOMED CT 385076057 / Confirmed HTN (hypertension) / SNOMED CT 5693151830 / Confirmed HLD (hyperlipidemia) / SNOMED CT 85244999 / Confirmed Depression / SNOMED CT 13254833 / Confirmed Positive colorectal cancer screening using Cologuard test / SNOMED CT 5745309627 / Confirmed Arthritis / SNOMED CT 9857234 / Confirmed Anxiety / SNOMED CT 92320033 / Confirmed Histories Procedure history: Laser on eyes ([id number]). Dental surgery ([id number]). Social History Social & Psychosocial Habits Tobacco 12/13/2023 Tobacco Use: Former smoker, quit more Smokeless tobacco use: Never Type: Cigarettes . Physical Examination Airway: Mallampati classification: II (soft palate, fauces, uvula visible). Respiratory: adequate air exchange. Cardiovascular: Regular rhythm. Plan [place] [employer] (ASA) physical status classification: Class III. Anesthetic Preoperative Plan: Anesthesia General. [facility] Comment on above: Result Comment: Elec tronically Signed By: Darius Spence Jr, DO\.br\Date and Time Signed: 02/01/24 07:52 EST 02-01-2024 Note Progress Note-Physic kacey Patient: ROCK HARRIS Age: 48 years Sex: Male : 1975 Associated Diagnoses: None Author: Darius Spence Jr, DO Postoperative Information Postoperative disposition: Postoperative disposition: To PACU. Optimetrix number: Optimetrix number [id number]. Anesthetic utilized: General. Health Status Allergies: Allergic Reactions (Selected) Severity Not Documented Sulfa drugs- No reactions were documented. Physical Examination Vital Signs 01/31/2024 13:08 EST Heart Rate Monitored 71 bpm Respiratory Rate Monitored 19 br/min Systolic Blood Pressure 128 mmHg Diastolic Blood Pressure 71 mmHg Mean Arterial Pressure, Cuff 90 mmHg SpO2 96 % 01/31/2024 12:55 EST Heart Rate Monitored 76 bpm Respiratory Rate Monitored 18 br/min Systolic Blood Pressure 118 mmHg Diastolic Blood Pressure 61 mmHg Mean Arterial Pressure, Cuff 80 mmHg SpO2 98 % 01/31/2024 12:43 EST Temperature Temporal Artery 36.4 DegC Heart Rate Monitored 74 bpm Respiratory Rate Monitored 20 br/min Systolic Blood Pressure 109 mmHg Diastolic Blood Pressure 78 mmHg Mean Arterial Pressure, Cuff 88 mmHg SpO2 100 % Pain Assessment: Controlled. General: Awake, Alert, Appropriate. Respiratory: Adequate air exchange. Cardiovascular: Stable, Normal peripheral perfusion. Neurological: Normal sensory function, Normal motor function. Assessment Anesthetic outcome No anesthetic complications noted. Adequate pain relief. able to void without difficulty, able to ambulate with assist, tolerating PO intake, no N/V. Review / Management Condition: Stable. Plan Transfer/Discharge: Transfer/Discharge Discharge when meets criteria ( To home ). [facility] Comment on above: Result Comment: Elec tronically Signed By: Darius Spence Jr, DO\.br\Date and Time Signed: 02/01/24 07:51 EST 01-31-2024 Hospital Discharge instructions Patient Education 01/31/2024 12:50:24 Hemorrhoids, Lenu-hz-Sbbd Hemorrhoids Hemorrhoids are swollen veins that may form: In the butt (rectum). These are called internal hemorrhoids. Around the opening of the butt (anus). These are called external hemorrhoids. Most hemorrhoids do not cause very bad problems. They often get better with changes to your lifestyle and what you eat. What are the causes? Having trouble pooping (constipation) or watery poop (diarrhea). Pushing too hard when you poop. . Being very overweight (obese). Sitting for too long. Riding a bike for a long time. Heavy lifting or other things that take a lot of effort. Anal sex. What are the signs or symptoms? Pain. Itching or soreness in the butt. Bleeding from the butt. Leaking poop. Swelling. One or more lumps around the opening of your butt. How is this treated? In most cases, hemorrhoids can be treated at home. You may be told to: Change what you eat. Make changes to your lifestyle. If these treatments do not help, you may need to have a procedure done. Your doctor may need to: Place rubber bands at the bottom of the hemorrhoids to make them fall off. Put medicine into the hemorrhoids to shrink them. Shine a type of light on the hemorrhoids to cause them to fall off. Do surgery to get rid of the hemorrhoids. Follow these instructions at home: Medicines Take gste-oio-fezahuv and prescription medicines only as told by your doctor. Use creams with medicine in them or medicines that you put in your butt as told by your doctor. Eating and drinking Eat foods that have a lot of fiber in them. These include whole grains, beans, nuts, fruits, and vegetables. Ask your doctor about taking products that have fiber added to them (fibersupplements). Take in less fat. You can do this by: ?Eating low-fat dairy products. ?Eating less red meat. ?Staying away from processed foods. Drink enough fluid to keep your pee (urine) pale yellow. Managing pain and swelling Take a warm-water bath (sitz bath) for 20 minutes to ease pain. Do this 3 4 times a day. You may do this in a bathtub. You may also use a portable sitz bath that fits over the toilet. If told, put ice on the painful area. It may help to use ice between your warm baths. ?Put ice in a plastic bag. ?Place a towel between your skin and the bag. ?Leave the ice on for 20 minutes, 2 3 times a day. If your skin turns bright red, take off the ice right away to prevent skin damage. The risk of damage is higher if you cannot feel pain, heat, or cold. General instructions Exercise. Ask your doctor how much and what kind of exercise is best for you. Go to the bathroom when you need to poop. Do not wait. Try not to push too hard when you poop. Keep your butt dry and clean. Use wet toilet paper or moist towelettes after you poop. Do not sit on the toilet for a long time. Contact a doctor if: You have pain and swelling that do not get better with treatment. You have trouble pooping. You cannot poop. You have pain or swelling outside the area of the hemorrhoids. Get help right away if: You have bleeding from the butt that will not stop. This information is not intended to replace advice given to you by your health care provider. Make sure you discuss any questions you have with your health care provider. Document Revised: 10/07/2022 Document Reviewed: 10/07/2022 [employer] Patient Education 2023 [employer]. 01/31/2024 12:50:20 Colon Polyps Colon Polyps Colon polyps are tissue growths inside the colon, which is part of the large intestine. They are one of the types of polyps that can grow in the body. A polyp may be a round bump or a mushroom-shaped growth. You could have one polyp or more than one. Most colon polyps are noncancerous (benign). However, some colon polyps can become cancerous over time. Finding and removing the polyps early can help prevent this. What are the causes? The exact cause of colon polyps is not known. What increases the risk? The following factors may make you more likely to develop this condition: Having a family history of colorectal cancer or colon polyps. Being older than 45 years of age. Being younger than 45 years of age and having a significant family history of colorectal cancer or colon polyps or a genetic condition that puts you at higher risk of getting colon polyps. Having inflammatory bowel disease, such as ulcerative colitis or Crohn's disease. Having certain conditions passed from parent to child (hereditary conditions), such as: ?Familial adenomatous polyposis (FAP). ?Hahn syndrome. ?Turcot syndrome. ?Peutz Jeghers syndrome. ?MUTYH-associated polyposis (MAP). Being overweight. Certain lifestyle factors. These include smoking cigarettes, drinking too much alcohol, not getting enough exercise, and eating a diet that is high in fat and red meat and low in fiber. Having had childhood cancer that was treated with radiation of the abdomen. What are the signs or symptoms? Many times, there are no symptoms. If you have symptoms, they may include: Blood coming from the rectum during a bowel movement. Blood in the stool (feces). The blood may be bright red or very dark in color. Pain in the abdomen. A change in bowel habits, such as constipation or diarrhea. How is this diagnosed? This condition is diagnosed with a colonoscopy. This is a procedure in which a lighted, flexible scope is inserted into the opening between the buttocks (anus) and then passed into the colon to examine the area. Polyps are sometimes found when a colonoscopy is done as part of routine cancer screening tests. How is this treated? This condition is treated by removing any polyps that are found. Most polyps can be removed during a colonoscopy. Those polyps will then be tested for cancer. Additional treatment may be needed depending on the results of testing. Follow these instructions at home: Eating and drinking Eat foods that are high in fiber, such as fruits, vegetables, and whole grains. Eat foods that are high in calcium and vitamin D, such as milk, cheese, yogurt, eggs, liver, fish, and broccoli. Limit foods that are high in fat, such as fried foods and desserts. Limit the amount of red meat, precooked or cured meat, or other processed meat that you eat, such as hot dogs, sausages, peralta, or meat loaves. Limit sugary drinks. Lifestyle Maintain a healthy weight, or lose weight if recommended by your health care provider. Exercise every day or as told by your health care provider. Do not use any products that contain nicotine or tobacco, such as cigarettes, e-cigarettes, and chewing tobacco. If you need help quitting, ask your health care provider. Do not drink alcohol if: ?Your health care provider tells you not to drink. ?You are , may be , or are planning to become . If you drink alcohol: ?Limit how much you use to: ?0 1 drink a day for women. ?0 2 drinks a day for men. ?Know how much alcohol is in your drink. In the [place] one drink equals one 12 oz bottle of beer (355 mL), one 5 oz glass of wine (148 mL), or one 1 oz glass of hard liquor (44 mL). General instructions Take tzav-ftg-xdfaeqz and prescription medicines only as told by your health care provider. Keep all follow-up visits. This is important. This includes having regularly scheduled colonoscopies. Talk to your health care provider about when you need a colonoscopy. Contact a health care provider if: You have new or worsening bleeding during a bowel movement. You have new or increased blood in your stool. You have a change in bowel habits. You lose weight for no known reason. Summary Colon polyps are tissue growths inside the colon, which is part of the large intestine. They are one type of polyp that can grow in the body. Most colon polyps are noncancerous (benign), but some can become cancerous over time. This condition is diagnosed with a colonoscopy. This condition is treated by removing any polyps that are found. Most polyps can be removed during a colonoscopy. This information is not intended to replace advice given to you by your health care provider. Make sure you discuss any questions you have with your health care provider. Document Revised: 05/15/2020 Document Reviewed: 05/15/2020 [employer] Patient Education 2023 [employer]. 01/31/2024 12:50:20 Colonoscopy, Care After Surgery Salam (CUSTOM) Colonoscopy Care After Surgery Please read the instructions outlined below and refer to this sheet in the next few weeks. These discharge instructions provide you with general information on caring for yourself after you leave the hospital. Your doctor may also give you specific instructions. While your treatment has been planned according to the most current medical practices available, unavoidable complications occasionally occur. If you have any problems or questions after discharge, please call your doctor. ACTIVITY You may resume your regular activity, but move at a slower pace for the next 24 hours. Take frequent rest periods for the next 24 hours. Walking will help get rid of the air and reduce the bloated feeling in your abdomen (belly). No driving for 24 hours (because of the anesthesia (medicine) used during the test). You may shower. Do not sign any important legal documents or operate any machinery for 24 hours (because of the anesthesia used during the test). NUTRITION Drink plenty of fluids. You may resume your normal diet as instructed by your doctor. Begin with a light meal and progress to your normal diet. Heavy or fried foods are harder to digest and may make you feel nauseated (sick to your stomach). Avoid alcoholic beverages for 24 hours or as instructed. MEDICATIONS You may resume your normal medications unless your doctor tells you otherwise. WHAT YOU CAN EXPECT TODAY Some feelings of bloating in the abdomen. Passage of more gas than usual. Spotting of blood in your stool or on the toilet paper. FOLLOW-UP Your doctor will discuss the results of your test with you. SEEK IMMEDIATE MEDICAL ATTENTION IF: There is more than a spotting of blood in your stool. There is abdominal distention (your abdomen is swollen). There is vomiting. You have a temperature over 101.5 F. There is abdominal pain or discomfort that is severe or gets worse throughout the day. Follow Up Care 12/13/2023 10:13:28 With:Mateus RANGEL, Gregorio Reid, [facility] Address: When: Unknown Comments:Call for any problems. Office will call to schedule follow up appointment [facility] 01-31-2024 Evaluation + Plan note Extrac mateo from: Title:1Preop H&P Author:Gregoroi Ignacio MD Date:01/31/24 Impression and Plan Impression: + cologard Plan: Colonoscopy [facility] [id number] NotePatient Education - Text Colonoscopy Care After Surgery Please read the instructions outlined below and refer to this sheet in the next few weeks. These discharge instructions provide you with general information on caring [facility] Your doctor may also give you specific instructions. While your treatment has been planned according to the most current medical practices available, unavoidable complications occasionally occur. If you have any problems or questions after discharge, please call your doctor. ACTIVITY You may resume your regular activity, but move at a slower pace for the next 24 hours. Take frequent rest periods for the next 24 hours. Walking will help get rid of the air and reduce the bloated feeling in your abdomen (belly). No driving for 24 hours (because of the anesthesia (medicine) used during the test). You may shower. Do not sign any important legal documents or operate any machinery for 24 hours (because of the anesthesia used during the test). NUTRITION Drink plenty of fluids. You may resume your normal diet as instructed by your doctor. Begin with a light meal and progress to your normal diet. Heavy or fried foods are harder to digestand may make you feel nauseated (sick to your stomach). Avoid alcoholic beverages for 24 hours or as instructed. MEDICATIONS You may resume your normal medications unless your doctor tells you otherwise. WHAT YOU CAN EXPECT TODAY Some feelings of bloating in the abdomen. Passage of more gas than usual. Spotting of blood in your stool or on the toilet paper. FOLLOW-UP Your doctor will discuss the results of your test with you. SEEK IMMEDIATE MEDICAL ATTENTION IF: There is more than a spotting of blood in your stool. There is abdominal distention (your abdomen is swollen). There is vomiting. You have a temperature over 101.5 F. There is abdominal pain or discomfort that is severe or gets worse throughout the day. Gastroenterology Hemorrhoids Hemorrhoids are swollen veins that may form: ??? In the butt (rectum). These are called internal hemorrhoids. ??? Around the opening of the butt (anus). These are called external hemorrhoids. Most hemorrhoids do not cause very bad problems. They often get better with changes to your lifestyle and what you eat. What are the causes? Having trouble pooping (constipation) or watery poop (diarrhea). ??? Pushing too hard when you poop. ??? . ??? Being very overweight (obese). ??? Sitting for too long. ??? Riding a bike for a long time. ??? Heavy lifting or other things that take a lot of effort. ??? Anal sex. What are the signs or symptoms? Pain. ??? Itching or soreness in the butt. ??? Bleeding from the butt. ??? Leaking poop. ??? Swelling. ??? One or more lumps around the opening of your butt. How is this treated? In most cases, hemorrhoids can be treated at home. You may be told to: ??? Change what you eat. ??? Make changes to your lifestyle. If these treatments do not help, you may need to have a procedure done. Your doctor may need to: ??? Place rubber bands at the bottom of the hemorrhoids to make them fall off. ??? Put medicine into the hemorrhoids to shrink them. ??? Shine a type of light on the hemorrhoids to cause them to fall off. ??? Do surgery to get rid of the hemorrhoids. Follow these instructions at home: Medicines ??? Take snhy-egd-dkoamht and prescription medicines only as told by your doctor. ??? Use creams with medicine in them or medicines that you put in your butt as told by your doctor. Eating and drinking ??? Eat foods that have a lot of fiber in them. These include whole grains, beans, nuts, fruits, and vegetables. ??? Ask your doctor about taking products that have fiber added to them (fibersupplements). ??? Take in less fat. You can do this by: ? Eating low-fat dairy products. ? Eating less red meat. ? Staying away from processed foods. ??? Drink enough fluid to keep your pee (urine) pale yellow. Managing pain and swelling ??? Take a warm-water bath (sitz bath) for 20 minutes to ease pain. Do this 3?4 times a day. You may do this in a bathtub. You may also use a portable sitz bath that fits over the toilet. ??? If told, put ice on the painful area. It may help to use ice between your warm baths. ? Put ice in a plastic bag. ? Place a towel between your skin and the bag. ? Leave the ice on for 20 minutes, 2?3 times a day. ??? If your skin turns bright red, take off the ice right away to prevent skin damage. The risk of damage is higher if you cannot feel pain, heat, or cold. General instructions ??? Exercise. Ask your doctor how much and what kind of exercise is best for you. ??? Go to the bathroom when you need to poop. Do not wait. ??? Try not to push too hard when you poop. (more content not included)...[facility]12-23-2024 NoteEndoscopic Procedure Report - Other Patient: ROCK HARRIS Age: 48 years Sex: Male : 1975 Associated Diagnoses: None Author: Gregorio Ignacio MD Pre-Procedure Procedure Date 01/31/2024 12:39:00 . Procedure Type: Colonoscopy with removal of tumor(s), polyp(s), or other lesion(s) by cold snare technique. Procedure provider Performed by Gregorio Ignacio MD. Current history and physical Reviewed. Laser on eyes ([id number]). Dental surgery ([id number]).. Past Medical History No active or resolved past medical history items have been selected or recorded.. reviewed . Family History Hypertension Father Mother Heart disease Grandparent Comments: 12/02/2022 9:00 EDT - Enedina Byrnes LPN grandfather Diabetes mellitus type 1 Mother Diabetes mellitus type 2 Father . reviewed . Procedure History Laser on eyes ([id number]). Dental surgery ([id number]).. Colorectal neoplasm risk assessment High risk Family history of colon cancer. . Informed Consent After discussing the rationale, risks and benefits, and alternatives to this procedure, the patient provided signed consent for the procedure. Pre-procedure diagnosis: Diagnostic: + colongard. Medications (Selected) Inpatient Medications Ordered Lactated Ringers IV Belen 1000 mL 1,000 mL: 1,000 mL, IV, 100 mL/hr, Routine, Start date 01/31/24 11:10:00 EST, 10 hour(s), Total volume (mL): 1,000 Sodium Chloride 0.9% IV Belen 1000 mL 1,000 mL: 1,000 mL, IV, 20 mL/hr, Routine, Start date 01/31/24 6:41:00 EST, 50 hour(s), Total volume (mL): 1,000 Prescriptions Prescribed buPROPion 150 mg/24 hours XL Tab: 150 mg = 1 tab(s), Oral, q24hr, # 90 tab(s), Refills(s) 3, [facility]: [facility], 174.5, cm, 10/14/23 8:34:00 EDT, Height/Length Dosing, 121.6, kg, 10/14/23 8:34:00 EDT, Weight Dosing lisinopril 20 mg Tab: 20 mg = 1 tab(s), Oral, Daily, # 90 tab(s), Refills(s) 3, [facility]acy: [facility], 174.5, cm, 10/14/23 8:34:00 EDT, Height/Length Dosing, 121.6, kg, 10/14/23 8:34:00 EDT, Weight Dosing Documented Medications Documented tirzepatide: SubCutaneous, qWeek, 20 units, Refills(s) 0, Blood glucose Anticoagulant/antiplatelet reviewed. ASA Classification: Class II. . Monitoring: See anesthesia record. . Procedure The procedure was performed in the hospital. See anesthesia record for sedation given during procedure. The patient was positioned starting in the left lateral decubitus position. Endoscope type usedwas an adult-size. The endoscope was lubricated then introduced through the anus. The scope was advanced to the cecum. No difficulties encountered during the procedure. The bowel preparation quality was adequate (see polyps greater than or equal to 6 millimeters). The patient tolerated the procedure well. Time to Cecum: 4min Withdrawal time 19 min Findings 1. Small internal hemorrhoids 2. 3 mm sessile polyp in the transverse colon, resected with cold snare completely and retrieved 3. Otherwise normal colonic mucosa, careful examination of each segment of the colon was done multiple times 4. Normal examined terminal ileum Images Procedure images: Rec1_hd_video__[id number].jpg Rec1_hd_video__[id number].jpg Rec1_hd_video__[id number].jpg Rec1_hd_video__[id number].jpg Rec1_hd_video__36_[id number].jpg Rec1_hd_video__36_[id number].jpg Rec1_hd_video__35_[id number].jpg Rec1_hd_video__35_05_[id number].jpg Rec1_hd_video__33_[id number].jpg Rec1_hd_video__34_07_[id number].jpg Rec1_hd_video____55_290.jpg Rec1_hd_video___38_339.jpg Rec1_hd_video____35_803.jpg Rec1_hd_video____20_122.jpg Rec1_hd_video____54_988.jpg Rec1_hd_video____31_650.jpg . Post-Procedure Complications: none. Estimated blood loss: Minimal. Specimens: sent to pathology. Devices/ implants: none left in place. Impression and Plan 1. Small internal hemorrhoids 2. 3 mm sessile polyp in the transverse colon, resected with cold snare completely and retrieved 3. Otherwise normal colonic mucosa, careful examination of each segment of the colon was done multiple times 4. Normal examined terminal ileum Recom (more content not included)...[facility] Result Comment: Electronically Signed By: Mateus RANGEL, Gregorio Reid\.br\Date and Time Signed: 01/31/24 12:40 ESTOther Comment: Missing Attachment - attachment storage system not supported [id number] Can be viewed in source system Missing Attachment - attachment storage system not supported [id number] Can be viewed in source systemMissing Attachment - attachment storage system not supported [id number] Can be viewed in source systemMissing Attachment - attachment storage system not supported [id number] Can be viewed in source systemMissing Attachment - attachment storage system not supported [id number] Can be viewed in source systemMissing Attachment - attachment storage system not supported [id number] Can be viewed in source systemMissing Attachment - attachment storage system not supported [id number] Can be viewed in source systemMissing Attachment - attachment storage system not supported [id number] Can be viewed in source system Missing Attachment - attachment storage system not supported [id number] Can be viewed in source systemMissing Attachment - attachment storage system not supported [id number] Can be viewed in source systemMissing Attachment - attachment storage system not supported [id number] Can be viewed in source systemMissing Attachment - attachment storage system not supported [id number] Can be viewed in source systemMissing Attachment - attachment storage system not supported [id number] Can be viewed in source systemMissing Attachment - attachment storage system not supported [id number] Can be viewed in source systemMissing Attachment - attachment storage system not supported [id number] Can be viewed in source system Missing Attachment - attachment storage system not supported [id number] Can be viewed in source [phone] NoteHistory and Physical Patient: ROCK HARRIS Age: 48 years Sex: Male : 1975 Associated Diagnoses: None Author: Mateus RANGEL, Gregorio Reid Preoperative Information Indication for procedure and diagnosis: + cologard Chief Complaint as above Review of Systems All systems reviewed, negative except as mentioned above Health Status Current medications: (Selected) Inpatient Medications Ordered Lactated Ringers IV Belen 1000 mL 1,000 mL: 1,000 mL, IV, 100 mL/hr, Routine, Start date 01/31/24 11:10:00 EST, 10 hour(s), Total volume (mL): 1,000 Sodium Chloride 0.9% IV Belen 1000 mL 1,000 mL: 1,000 mL, IV, 20 mL/hr, Routine, Start date 01/31/24 6:41:00 EST, 50 hour(s), Total volume (mL): 1,000 Prescriptions Prescribed buPROPion 150 mg/24 hours XL Tab: 150 mg = 1 tab(s), Oral, q24hr, # 90 tab(s), Refills(s) 3, [facility]acy: [facility], 174.5, cm, 10/14/23 8:34:00 EDT, Height/Length Dosing, 121.6, kg, 10/14/23 8:34:00 EDT, Weight Dosing lisinopril 20 mg Tab: 20 mg = 1 tab(s), Oral, Daily, # 90 tab(s), Refills(s) 3, [facility]acy: [facility], 174.5, cm, 10/14/23 8:34:00 EDT, Height/Length Dosing, 121.6, kg, 10/14/23 8:34:00 EDT, Weight Dosing Documented Medications Documented tirzepatide: SubCutaneous, qWeek, 20 units, Refills(s) 0, Blood glucose, Home Medications (3) Active buPROPion 150 mg/24 hours XL Tab 150 mg = 1 tab(s), Oral, q24hr lisinopril 20 mg Tab 20 mg = 1 tab(s), Oral, Daily tirzepatide , SubCutaneous, qWeek Problem list: All Problems Anxiety / SNOMED CT 33767680 / Confirmed Arthritis / SNOMED CT 3521338 / Confirmed HTN (hypertension) / SNOMED CT 6310314722 / Confirmed Sleep apnea / SNOMED CT 791199665 / Confirmed Depression / SNOMED CT 20118244 / Confirmed Physical exam / SNOMED CT 831022784 / Confirmed HLD (hyperlipidemia) / SNOMED CT 89542709 / Confirmed Positive colorectal cancer screening using Cologuard test / SNOMED CT 2984596967 / Confirmed Histories Past Medical History: No active or resolved past medical history items have been selected or recorded. Family History: Father Diabetes mellitus type 2 Hypertension Mother Diabetes mellitus type 1 Hypertension Grandparent Heart disease Comments: 12/02/2022 9:00 EDT - Enedina Byrnes LPN grandfather Procedure history: Laser on eyes ([id number]). Dental surgery ([id number]). Social History Social & Psychosocial Habits Tobacco 01/31/2024 Tobacco Use: Former smoker, quit more Smokeless tobacco use: Never Type: Cigarettes . Physical Examination Vital Signs (last 24 hrs) Last Charted Temp Temporal 37.1 DegC (JAN 30:) Heart Rate Monitored 79 bpm (JAN 30) Resp Rate 16 br/min (JAN 30) SBP 136 mmHg (JAN 30:) DBP 77 mmHg (JAN 30:) Weight 116 kg (JAN 30:) BMI 38.31 (JAN 30:) General: in Nad Abdomen: Soft, NTND Impression and Plan Impression: + cologard Plan: [facility] WestComment on above:Result Comment: Electronically Signed By: Mateus RANGEL, Gregorio Reid\donell\Date and Time Signed: 01/31/24 12:15 ESTEvaluation + Plan note No data available for this section [facility] Evaluation + Plan note Future Appointments Appointment Date:01/31/2024 12:00:00 PM Scheduled Provider: Location:[facility] Appointment Type:Surgery [facility] Discharge instructions No data available for this section [facility] Progress note No data available for this section [facility] Summary Purpose Family History No Family History Records FoundNo Family History Records Found No data available for this section No Family History Records FoundNo Family History Records FoundNo Family History Records Found No data available for this section No data available for this section No Family History Records FoundNo Family History Records Found Advance Directives No Advanced Directives Records FoundNo Advanced Directives Records FoundNo Advanced Directives Records FoundNo Advanced Directives Records FoundNo Advanced Directives Records FoundNo Advanced Directives Records FoundNo Advanced Directives Records Found Additional Source Comments (unrecognized sect ion and content) No Status Records FoundNo Status Records FoundNo Status Records FoundNo Status Records FoundNo Status Records FoundNo Status Records FoundNo Status Records Found INFORMATION SOURCE (unrecogn ized section and content) DATE CREATED AUTHOR 12/31/2021 [facility] DATE CREATED AUTHOR AUTHOR'S ORGANIZ ATION 10/15/2023 [facility] DATE CREATED AUTHOR AUTHOR'S ORGANIZ ATION 10/16/2023 [facility] DATE CREATED AUTHOR AUTHOR'S ORGANIZ ATION 02/04/2024 [facility] DATE CREATED AUTHOR AUTHOR'S ORGANIZ ATION 02/22/2024 [facility] Patient Care team informatio n (unrecognized section and content) Personnel Name: Anselmo Leiva MD Address: Address: [facility] [place] [address]- [place] Personnel Name: Anselmo Leiva MD Address: Address: [facility]. [place], [place] [address] Personnel Name: Anselmo Leiva MD Address: Address[facility] [place] [address]- FOR RECORDS PERTAINING TO PATIENTS WHO ARE OR HAVE BEEN ENROLLED IN A CHEMICAL DEPENDENCY/SUBSTANCEABUSE PROGRAM, SOME INFORMATION MAY BE OMITTED. This clinical summary was aggregated from multiple sources. Caution should be exercised in using it in the provision of clinical care. This summary normalizes information from multiple sources, and as a consequence, information in this document may materially change the coding, format and clinical context of patient data. In addition, data may be omitted in some cases. CLINICAL DECISIONS SHOULD BE BASED ON THE PRIMARY CLINICAL RECORDS. [facility] [employer] [facility]. provides no warranty or guarantee of the accuracy or completeness of information in this document.
== END 2024-08-31 15:06 | disposition home or self-care (01) ==
PROVIDERS: PCP Family Medicine; Visit Provider Family Medicine
DX: Z00.00 Encounter for general adult medical examination without abnormal findings (principal)
CPT/HCPCS: 36415; 80053; 80061; 83036; 84403; 84436; 84443; 84481; 85025; G0103